=== PATIENT | female | born 1985 | race Caucasian/White ===

== ENCOUNTER 2020-05-14 13:58 | Emergency (ER) | payer SELFPAY ==
[2020-05-14 14:06] VITALS: BP 174/89; PULSE 85; RESP 18; TEMP 36.9; O2SAT 100
--- NOTE | 2020-05-14 14:16 | ED.GENADULT ---
HPI - General Adult General Chief complaint: Allergic Reaction Stated complaint: right eye swollen Time Seen by Provider: 05/14/20 14:17 Source: patient and RN notes reviewed Mode of arrival: ambulatory Limitations: no limitations History of Present Illness HPI narrative: This is a 35 years old female presented office for evaluation of right eye swollen just about an hour ago. She woke up this morning feeling fine, went to shopping and yard sale. She felt exhausted afterwards so she took an 10 to 15-minute nap and woke up with the symptoms. Symptoms began with slight itchiness which she scratched and rubbed and then it got worse with swollen and now having pain and pressures. Denies any other associated symptoms such as fever, cough, sore throat, or feeling ill. No treatment prior to arrival.Denies sick contact. She states that she has very sensitive skin and allergic to many things. Related Data Allergies Allergy/AdvReac Type Severity Reaction Status Date / Time guaifenesin Allergy Unknown Verified 08/27/19 11:46 morphine Allergy Unknown rash/itchin Verified 08/27/19 11:46 g hydromorphone AdvReac Unknown Vomiting Verified 08/27/19 11:46 Review of Systems Review of Systems: Narrative: CONSTITUTIONAL: Denies fever or feeling ill EYES: Denies visual changes; does not wear contact lenses. Reports right eyelids swollen and pressure ENT: Denies congestion, sore throat or ears pain CARDIOVASCULAR: Denies chest pain RESPIRATORY: Denies dyspnea, cough GASTROINTESTINAL: Denies abdominal pain, nausea, vomiting SKIN: Denies insect bite/lesions. MUSCULOSKELETAL: Denies joints pain NEUROLOGIC: Denies lightheaded/dizziness All other systems reviewed are negative, except as documented in HPI. PMFSH Comments At time of signature, I agree with nursing past medical, surgical, social and family history. There is no relevant family history pertinent to the presenting complaint. Exam Narrative: Exam Narrative: GENERAL: This is a well-nourished, well-developed patient, in no apparent distress. EYES: PERRL. Bilateral Sclera clear/white.Right eyelids appears edematous with slight erythema, warmth to palpation; I was able to prop her eye opens to check for reflex. EARS: External ears normal, auditory canals clear and without drainage, TMs normal without perforation. Hearing grossly intact. THROAT: Mucous membranes moist, posterior pharynx clear. NECK: Neck supple, non-tender without lymphadenopathy, masses or thyromegaly. CARDIOVASCULAR: Regular rate and rhythm without murmurs, gallops, or rubs. RESPIRATORY: Clear to auscultation. Breath sounds equal bilaterally. No wheezes, rales, or rhonchi. GASTROINTESTINAL: Abdomen soft, non-tender, nondistended. Bowel sounds are active. No hepato-splenomegaly, or palpable masses. No guarding. SKIN: warm, intact with no suspicious lesions or rash or bite beltran on her eye region. NEURO: awake, alert, and oriented to person, place and time. There were no obvious focal neurologic abnormalities. Steady gait [place] Coma Scale Eye Opening: Spontaneous 4 [place] Coma Scale Motor: Obeys Commands 6 [place] Coma Scale Verbal: Oriented 5 Course Vital Signs Vital signs: Vital Signs Temperature 98.4 F 05/14/20 14:06 Pulse Rate 85 05/14/20 14:06 Respiratory Rate 18 05/14/20 14:06 Blood Pressure 174/89 H 05/14/20 14:06 Pulse Oximetry 100 05/14/20 14:06 Temperature 98.4 F 05/14/20 14:06 Pulse Rate 85 05/14/20 14:06 Respiratory Rate 18 05/14/20 14:06 Blood Pressure 174/89 H 05/14/20 14:06 Pulse Oximetry 100 05/14/20 14:06 Medical Decision Making MDM Narrative Medical decision making narrative: Patient is Urgent/Emergent. BP elevated due to current condition w/o HTN in PMH (Measure Met). Discharge instructions reviewed with patient, as well as provided in writing per nursing staff. The instructions also include specific and strict return/GO TO THE ER as well as f/u inform
[2020-05-14] MEDS: methylPREDNISolone ACETATE 40 MG/ML VIAL IM (14:29)
== END 2020-05-14 14:45 | disposition home or self-care (01) ==
PROVIDERS: Emergency Provider Nurse Practitioner
DX: H57.89 Other specified disorders of eye and adnexa (principal); J45.909 Unspecified asthma, uncomplicated
CPT/HCPCS: 96372; 99213; G0463; J1030

== ENCOUNTER → 2020-12-29 09:19 | Emergency (ER) | payer OTHER, SELFPAY | END | disposition left against medical advice (07) | LOC: EXPBETH 09:54 | PROVIDERS: Emergency Provider Nurse Practitioner; PCP Family Medicine | DX: Z53.21 Procedure and treatment not carried out due to patient leaving prior to being seen by health care provider (principal) | CPT/HCPCS: 99199 ==

== ENCOUNTER 2021-02-07 15:18 | Emergency (ER) | payer OTHER, SELFPAY ==
[2021-02-07 15:25] VITALS: BP 154/76; PULSE 95; RESP 18; TEMP 36.7; O2SAT 99
--- NOTE | 2021-02-07 16:13 | ED.URI ---
HPI - URI/Sore Throat General Chief Complaint: Upper Respiratory Infection Stated Complaint: lost taste stuffy nose, nausea Time Seen by Provider: 02/07/21 15:47 Source: patient and RN notes reviewed Mode of arrival: ambulatory Limitations: no limitations History of Present Illness HPI Narrative: Patient presents today complaining of a 1 week history of cough, chills, subjective fever, nasal congestion, loss of taste or smell, worsening shortness of breath than normal. History of asthma. She is using her inhaler slightly more than normal. She has been using Vicks daytime and nighttime with some relief. She works at [employer] and has been continuing to go to work. MD elicited complaint: cough Related Data Home Medications Medication Instructions Recorded Confirmed albuterol sulfate 2 puff INHALATION QID PRN 02/07/21 02/07/21 Allergies Allergy/AdvReac Type Severity Reaction Status Date / Time guaifenesin Allergy Unknown Unknown Verified 02/07/21 15:51 morphine Allergy Unknown rash/itchin Verified 02/07/21 15:51 g hydromorphone AdvReac Unknown Vomiting Verified 02/07/21 15:51 Review of Systems Review of Systems: Narrative: CONSTITUTIONAL: Denies body aches, or sweats.+ Chills, subjective fever EYES: Denies visual changes, redness, or discharge. ENT: Denies rhinorrhea, sore throat, or otalgia.+ Congestion, loss of taste and smell CARDIOVASCULAR: Denies chest pain, palpitations, or edema. RESPIRATORY: + Cough, shortness of breath GASTROINTESTINAL: Denies abdominal pain, nausea, vomiting, or diarrhea. GENITOURINARY: Denies dysuria or hematuria. SKIN: Denies rash, itching, or wounds. MUSCULOSKELETAL: Denies back pain, joint pain, or myalgia. NEUROLOGIC: Denies headache, numbness, tingling, or weakness. PSYCH: Denies depression or anxiety. [facility] Past Medical History Medical History (Updated 02/08/21 @ 08:22 by Hawa Ramos, [employer], ) Asthma Bipolar disorder GERD (gastroesophageal reflux disease) Hypertension Major depressive disorder Comments At time of signature, I have reviewed and agree with nursing past medical, surgical, social and family history unless otherwise noted. Please see nursing chart for further information. There is no relevant family history pertinent to the presenting complaint Exam Narrative: Exam Narrative: GENERAL: Mildly ill-appearing, well-nourished, and in no acute distress. HEAD: Normocephalic, atraumatic. EYES: EOMI. No redness or drainage. Conjunctivae normal. ENT: Mucous membranes pink and moist. Nares congested. No rhinorrhea. TMs normal bilaterally. Throat normal. Uvula midline. NECK: Normal AROM. Supple. No lymphadenopathy. CHEST: No respiratory distress. Clear to auscultation. HEART: Regular rate and rhythm. No murmur appreciated. Normal peripheral pulses. EXTREMITIES: Normal range of motion. No edema. SKIN: Warm, dry, no rash. Capillary refill normal. Normal skin turgor. NEURO: No focal deficits. Alert and oriented x3. Gait steady. PSYCH: Normal affect. No signs of depression or anxiety. Course Vital Signs Vital signs: Vital Signs Temperature 98.1 F 02/07/21 15:25 Pulse Rate 95 02/07/21 15:25 Respiratory Rate 18 02/07/21 15:25 Blood Pressure 154/76 H 02/07/21 15:25 Pulse Oximetry 99 02/07/21 15:25 Temperature 98.1 F 02/07/21 15:25 Pulse Rate 95 02/07/21 15:25 Respiratory Rate 18 02/07/21 15:25 Blood Pressure 154/76 H 02/07/21 15:25 Pulse Oximetry 99 02/07/21 15:25 Reviewed. Pt has been instructed to follow up with her PCP regarding her elevated blood pressure today. MDM - URI/Sore Throat Differential Diagnosis Differential diagnosis: Likely upper respiratory infection, sinusitis, viral infection, bronchitis, influenza and other (COVID-19, pneumonia, asthma exacerbation) Lab Data Attestation: I reviewed the patient's lab results. Lab results narrative: Patient's rapid POC Covid test is positive. This is not curren
--- NOTE | 2021-02-08 10:35 | PC.NURSE ---
Previously determined covid poc result inadvertently charted negative 02/07. Staff spoke with Marilynn in lab. She was made aware test result was positive and she will make change in chart. Additionally spoke with Aram Armstrong (with [facility] POC testing reporting portal) who made change from negative result to positive.
== END 2021-02-07 16:15 | disposition home or self-care (01) ==
PROVIDERS: Emergency Provider Nurse Practitioner
DX: U07.1 COVID-19 (principal); J45.909 Unspecified asthma, uncomplicated; K21.9 Gastro-esophageal reflux disease without esophagitis; I10 Essential (primary) hypertension
CPT/HCPCS: 87426; 99213; C9803; G0463

== ENCOUNTER 2021-07-22 16:48 | Emergency (ER) | payer OTHER, SELFPAY ==
[2021-07-22 17:00] VITALS: BP 169/86; PULSE 84; RESP 16; TEMP 37.3; O2SAT 100
--- NOTE | 2021-07-22 17:01 | ED.DENTAL ---
HPI - Dental/Oral General Chief complaint: Dental/Oral Stated complaint: infected gum Time Seen by Provider: 07/22/21 17:08 Source: patient and RN notes reviewed Mode of arrival: ambulatory Limitations: no limitations History of Present Illness HPI Narrative: 36-year-old female presents with concern for dental pain. She reports that she broke tooth #12 sometime ago, had not caused her any problems. Reports over the last several days she has had pain, swelling to that area. Reports occasional foul taste coming from the area. She denies fever, body aches. Denies swollen lips, tongue, trouble swallowing. Reports she is going to see a dentist this week. MD Complaint: tooth pain ([place]) Related Data Home Medications Medication Instructions Recorded Confirmed acetaminophen [Acetaminophen Extra 1,000 mg PO BID 07/22/21 07/22/21 Strength] citalopram 10 mg PO DAILY 07/22/21 07/22/21 etonogestrel [Nexplanon] 1 implant SUBDERMAL ONCE 07/22/21 07/22/21 Allergies Allergy/AdvReac Type Severity Reaction Status Date / Time guaifenesin Allergy Unknown Rash Verified 07/22/21 17:11 morphine Allergy Unknown rash/itchin Verified 02/07/21 15:51 g hydromorphone AdvReac Unknown Vomiting Verified 02/07/21 15:51 Review of Systems Review of Systems: CONSTITUTIONAL: Denies malaise, chills, sweats, or fever. ENT: Denies rhinorrhea, congestion, sinus pain, otalgia or sore throat. Reports left upper dental pain CARDIOVASCULAR: Denies chest pain, palpitations, or edema. RESPIRATORY: Denies dyspnea. All systems reviewed & are unremarkable except as noted in HPI and below PMFSH Past Medical History Medical History (Updated 07/22/21 @ 17:17 by Dionne Sheldon NP) Asthma Bipolar disorder GERD (gastroesophageal reflux disease) Hypertension Major depressive disorder Comments At time of signature, agree with nursing past medical, surgical, social and family history. There is no relevant family history pertinent to the presenting complaint Exam Narrative: GENERAL: Well-appearing, well-nourished, and in no acute distress. HEAD: Normocephalic, atraumatic. EYES: PERRLA, conjunctivae clear ENT: Nares clear. Mucous membranes moist. Oropharynx without erythema or lesions. Tonsils not enlarged and without exudate. Tooth #12 broken, erythematous gum, tender NECK: Supple. CHEST: No respiratory distress. Speaks in full sentences. HEART: Regular rate and rhythm. SKIN: Warm, dry, no rash. NEURO: Alert and oriented x3. PSYCH: Normal mood and affect Course Course Emergency Course: Patient is aware of diagnosis, understands and agrees to treatment plan. Anticipatory guidance given. Patient agrees to follow-up as directed and is aware of reasons to seek care at the emergency department. Portions of this record may have been created with voice recognition software Vital Signs Vital signs: Reviewed. MDM - Dental/Oral MDM Narrative Medical decision making narrative: Patients pain and complaint coupled with physical findings are consistant with dentalgia. There are no focal signs of space occupying lesions that are compromising to the airway; no dysphagia, odynophagia, dysphonia, or dyspnea. No uvular deviation or soft palate edema. Patient is non-toxic appearing. The floor of the mouth is soft with no signs of Dilan's Angina; no induration below mandible, no neck pain. Patient is without trismus or drooling and able to swallow secretions. Patient is felt appropriate for discharge home with dental follow up. Critical Care Time Critical Care Time Critical Care Time: No Discharge Plan Discharge Clinical Impression: Dental abscess Patient Disposition: Home, Self-Care Condition: Stable Instructions: Antibiotic Form, Dental Abscess (ED) Additional Instructions: Take antibiotic as directed Avoid temperature extremes May apply heat or ice to the face Gentle brushing and flossing Alternate Tylenol and ibuprofen as ne
== END 2021-07-22 17:22 | disposition home or self-care (01) ==
PROVIDERS: Emergency Provider Nurse Practitioner
DX: K04.7 Periapical abscess without sinus (principal); J45.909 Unspecified asthma, uncomplicated; K21.9 Gastro-esophageal reflux disease without esophagitis; I10 Essential (primary) hypertension; F32.9 Major depressive disorder, single episode, unspecified
CPT/HCPCS: 99213; G0463

== ENCOUNTER 2021-10-11 13:02 | Emergency (ER) | payer OTHER, SELFPAY ==
[2021-10-11 13:07] VITALS: BP 177/102; PULSE 76; RESP 20; TEMP 36.9; O2SAT 99
--- NOTE | 2021-10-11 13:36 | ED.DENTAL ---
HPI - Dental/Oral General Chief complaint: Dental/Oral Stated complaint: tooth pain Time Seen by Provider: 10/11/21 13:36 Source: patient and RN notes reviewed Mode of arrival: ambulatory Limitations: no limitations History of Present Illness HPI Narrative: 36-year-old female presents concern for upper and lower left dental pain. Reports history of problems with her teeth. Reports she has been taking ibuprofen daily with no relief. She denies trouble swallowing, fever, body aches, chills. In a separate complaint she reports itchy rash with scabs on her lower arms, lower legs, hands, feet, abdomen. Reports her son has a similar rash. MD Complaint: tooth pain Related Data Home Medications Medication Instructions Recorded Confirmed citalopram 10 mg PO DAILY 07/22/21 10/11/21 Allergies Allergy/AdvReac Type Severity Reaction Status Date / Time guaifenesin Allergy Unknown Rash Verified 10/11/21 13:12 morphine Allergy Unknown rash/itchin Verified 10/11/21 13:12 g hydromorphone AdvReac Unknown Vomiting Verified 10/11/21 13:12 Review of Systems Review of Systems: CONSTITUTIONAL: Denies malaise, chills, sweats, or fever. EYES: Denies visual changes, redness, or discharge. ENT: Denies rhinorrhea, congestion, sinus pain, otalgia or sore throat. CARDIOVASCULAR: Denies chest pain, palpitations, or edema. RESPIRATORY: Denies cough or dyspnea. GASTROINTESTINAL: Denies abdominal pain, nausea, vomiting, diarrhea, bloody, or mucous stools. GENITOURINARY: Denies dysuria or hematuria. SKIN: Denies rash or itching. MUSCULOSKELETAL: Denies back pain, joint pain, or myalgia. NEUROLOGIC: Denies numbness, weakness, or headache. PSYCHIATRIC: Denies anxiety or depression. All systems reviewed & are unremarkable except as noted in HPI and below PMFSH Past Medical History Medical History (Updated 10/11/21 @ 13:46 by Dionne Sheldon NP) Asthma Bipolar disorder GERD (gastroesophageal reflux disease) Hypertension Major depressive disorder Comments At time of signature, agree with nursing past medical, surgical, social and family history. There is no relevant family history pertinent to the presenting complaint Exam Narrative: GENERAL: Well-appearing, well-nourished, and in no acute distress. HEAD: Normocephalic, atraumatic. EYES: PERRLA, conjunctivae clear, and EOMI. ENT: Mucous membranes moist. Oropharynx without edema, erythema or lesions. Broken teeth, missing teeth, caries, noted on left upper and lower side. NECK: Supple. No lymphadenopathy CHEST: Clear to auscultation. No respiratory distress. HEART: Regular rate and rhythm. SKIN: Warm, dry. Scabs, erythematous papules noted to lower arms, lower legs, abdomen with tracking consistent with scabies infection NEURO: Alert and oriented x3. PSYCH: Normal mood and affect Course Course Emergency Course: Patient is aware of diagnosis, understands and agrees to treatment plan. Anticipatory guidance given. Patient agrees to follow-up as directed and is aware of reasons to seek care at the emergency department. Portions of this record may have been created with voice recognition software Vital Signs Vital signs: Vital Signs Temperature 98.4 F 10/11/21 13:07 Pulse Rate 76 10/11/21 13:07 Respiratory Rate 20 10/11/21 13:07 Blood Pressure 177/102 H 10/11/21 13:07 Pulse Oximetry 99 10/11/21 13:07 Temperature 98.4 F 10/11/21 13:07 Pulse Rate 76 10/11/21 13:07 Respiratory Rate 20 10/11/21 13:07 Blood Pressure 177/102 H 10/11/21 13:07 Pulse Oximetry 99 10/11/21 13:07 Reviewed. Patient has been instructed to follow up with her primary care provider within the next week regarding her elevated blood pressure today. MDM - Dental/Oral MDM Narrative Medical decision making narrative: Patients pain and complaint coupled with physical findings are consistant with dentalgia. There are no focal signs of space occupying lesions that are compromising to the air
[2021-10-11 13:55] VITALS: BP 168/98
== END 2021-10-11 13:55 | disposition home or self-care (01) ==
PROVIDERS: Emergency Provider Nurse Practitioner; PCP Nurse Practitioner Family
DX: K08.89 Other specified disorders of teeth and supporting structures (principal); B86 Scabies; J45.909 Unspecified asthma, uncomplicated; K21.9 Gastro-esophageal reflux disease without esophagitis; I10 Essential (primary) hypertension; F32.9 Major depressive disorder, single episode, unspecified
CPT/HCPCS: 99213; G0463

== ENCOUNTER 2022-10-29 11:27 | Emergency (ER) | payer OTHER, SELFPAY ==
--- NOTE | 2022-10-29 11:53 | ED.ASTHMA ---
HPI - Asthma General Chief Complaint: Asthma Stated Complaint: asthma/hard time breathing History of Present Illness HPI Narrative: Patient here for a refill on her Spiriva. Patient states she was started on Spiriva through the emergency room 1 month ago and feels much better while she is on it. Patient called her primary care provider and was not able to get a refill until she was evaluated by her PCP. No respiratory distress. Related Data Home Medications Medication Instructions Recorded Confirmed Spiriva Respimat 1 puff BID 10/29/22 10/29/22 albuterol sulfate 90 mcg/actuation 2 puff inhalation QID PRN wheezing 10/29/22 10/29/22 aerosol inhaler Allergies Allergy/AdvReac Type Severity Reaction Status Date / Time guaifenesin Allergy Unknown Rash Verified 10/29/22 11:47 morphine Allergy Unknown rash/itchin Verified 10/29/22 11:47 g hydromorphone AdvReac Unknown Vomiting Verified 10/29/22 11:47 Review of Systems Review of Systems: CONSTITUTIONAL: Denies fever, chills, or sweats. EYES: Denies visual changes, redness, or discharge. ENT: Denies rhinorrhea, congestion, sore throat, or otalgia. CARDIOVASCULAR: Denies chest pain, palpitations, or edema. RESPIRATORY: Denies cough or dyspnea. GASTROINTESTINAL: Denies abdominal pain, nausea, vomiting, or diarrhea. GENITOURINARY: Denies dysuria or hematuria. SKIN: Denies rash or itching. MUSCULOSKELETAL: Denies back pain, joint pain, or myalgia. NEUROLOGIC: Denies headache, numbness, or weakness. PSYCHIATRIC: Denies anxiety or depression. [facility] Past Medical History Medical History (Updated 10/29/22 @ 11:56 by ADDI Moise) Asthma Bipolar disorder GERD (gastroesophageal reflux disease) Hypertension Major depressive disorder Comments At time of signature, agree with nursing past medical, surgical, social and family history. There is no relevant family history pertinent to the presenting complaint Exam Narrative: GENERAL: Well-appearing, well-nourished, and in no acute distress. HEAD: Normocephalic, atraumatic. EYES: PERRLA and EOMI. ENT: Nares clear, no rhinorrhea or epistaxis. Mucous membranes moist. NECK: Supple. CHEST: Clear to auscultation. No respiratory distress. HEART: Regular rate and rhythm. No murmur heard. Normal peripheral pulses. ABDOMEN: Soft, nontender, nondistended, normal active bowel sounds. EXTREMITIES: Normal range of motion. No edema. SKIN: Warm, dry, no rash. NEURO: No focal deficits. Alert and oriented x3. [place] Coma Scale Eye Opening: Spontaneous 4 [place] Coma Scale Motor: Obeys Commands 6 [place] Coma Scale Verbal: Oriented 5 [place] Coma Scale Total 15 Course Course Level of Care: Express Care Visit MDM - Asthma Differential Diagnosis Differential diagnosis: Likely Acute exacerbation, Status asthmaticus, Acute asthmatic bronchitis, PE, Pneumonia and COPD exacerbation Discharge Plan Discharge Clinical Impression: Medication refill Patient Disposition: Home, Self-Care Condition: Stable Instructions: Asthma (DC), Medicine Refill (ED) Additional Instructions: Use inhalers as prescribed Follow-up with primary care provider in 5-7 days for re-evaluation Discussed red flags and when to go to ER Prescriptions: New Spiriva Respimat 1.25 mcg/actuation mist 2 puff inhalation DAILY 30 Days Qty: 4 0RF albuterol sulfate 90 mcg/actuation HFA aerosol inhaler 2 puff inhalation QID PRN (Reason: shortness of breath or wheezing) 30 Days Qty: 8.5 0RF No Action albuterol sulfate 90 mcg/actuation HFA aerosol inhaler 2 puff INHALATION QID PRN (Reason: wheezing) Spiriva Respimat 1 puff BID Follow-up/Referrals: Nandini,Ruth Herrera, CERE[employer]MIST-[facility]ARMAN [Primary Care Provider] -
[2022-10-29 12:03] VITALS: BP 153/91; PULSE 86; RESP 18; TEMP 36; O2SAT 99
== END 2022-10-29 12:05 | disposition home or self-care (01) ==
PROVIDERS: Emergency Provider Nurse Practitioner Family; PCP Nurse Practitioner Family
DX: J45.909 Unspecified asthma, uncomplicated (principal); Z76.0 Encounter for issue of repeat prescription; K21.9 Gastro-esophageal reflux disease without esophagitis; I10 Essential (primary) hypertension
CPT/HCPCS: 99211; G0463

== ENCOUNTER 2023-03-25 19:10 | Emergency (ER) | payer OTHER, SELFPAY ==
--- NOTE | 2023-03-25 19:14 | ED.SKABFB ---
HPI - Skin/Abscess/Foreign Bdy General Chief complaint: Skin/Abscess/Foreign Body Stated complaint: Skin Sore/Finger Time Seen by Provider: 03/25/23 19:15 Source: patient and RN notes reviewed History of Present Illness HPI narrative: Patient is a 37 female presents to urgent care with complaints of a sore to the left ring finger. Patient states that she noticed 2 days ago. Patient is put cold compress on up otherwise has not taken anything [id number] for pain. Patient does admit to biting her nails. No other acute complaints. No acute distress noted. Patient aware of the of care. Some parts of this dictation were generated by voice recognition software and may contain typographical and/or grammatical inaccuracies. Related Data Home Medications Medication Instructions Recorded Confirmed albuterol sulfate 90 mcg/actuation 2 puff inhalation QID PRN wheezing 10/29/22 03/25/23 aerosol inhaler Allergies Allergy/AdvReac Type Severity Reaction Status Date / Time guaifenesin Allergy Unknown Rash Verified 03/25/23 19:23 morphine Allergy Unknown rash/itchin Verified 03/25/23 19:23 g hydromorphone AdvReac Unknown Vomiting Verified 03/25/23 19:23 Review of Systems Review of Systems: CONSTITUTIONAL: Denies fever, chills, or sweats. EYES: Denies visual changes, redness, or discharge. ENT: Denies rhinorrhea, congestion, sore throat, or otalgia. CARDIOVASCULAR: Denies chest pain, palpitations, or edema. RESPIRATORY: Denies cough or dyspnea. GASTROINTESTINAL: Denies abdominal pain, nausea, vomiting, or diarrhea. GENITOURINARY: Denies dysuria or hematuria. SKIN: Reports of a sore to the left ring finger. MUSCULOSKELETAL: Denies back pain, joint pain, or myalgia. NEUROLOGIC: Denies headache, numbness, or weakness. All other systems reviewed are negative, except as documented in HPI. [facility] Past Medical History Medical History (Updated 03/25/23 @ 19:42 by ADDI Parmar) Asthma Bipolar disorder GERD (gastroesophageal reflux disease) Hypertension Major depressive disorder Comments At the time of my signature, I reviewed and agree with the nursing past medical, surgical, social, and family history. There is no relevant family history pertinent to the patient complaint. Exam Narrative: GENERAL: This is a well-nourished, well-developed patient, in no apparent distress. HEAD: normocephalic, atraumatic. EYES: PERRL. Sclera clear/white. Vision is grossly intact. EARS: External ears normal NOSE: External nose normal with no obvious nasal discharge, nares without redness, no rhinorrhea. THROAT: Mucous membranes moist SKIN: Mild paronychia to the aspect of the left ring finger with tenderness with mild surrounding erythema. Warm, intact with no suspicious lesions or rash, good texture and turgor. NEURO: awake, alert, and oriented to person, place and time. There were no obvious focal neurologic abnormalities. EXTREMITIES: No clubbing, cyanosis, or edema. Course Course Level of Care: Express Care Visit Vital Signs Vital signs: Vital Signs Temperature 99.0 F 03/25/23 19:18 Pulse Rate 86 03/25/23 19:18 Respiratory Rate 20 03/25/23 19:18 Blood Pressure 151/85 H 03/25/23 19:18 Pulse Oximetry 100 03/25/23 19:18 Oxygen Delivery Room Air 03/25/23 19:18 Temperature 99.0 F 03/25/23 19:24 Pulse Rate 86 03/25/23 19:24 Respiratory Rate 20 03/25/23 19:24 Blood Pressure 151/85 H 03/25/23 19:24 Pulse Oximetry 100 03/25/23 19:24 Oxygen Delivery Room Air 03/25/23 19:24 Reviewed- Patient is informed that they may have pre-hypertension or hypertension based on a blood pressure reading in the department. I recommend the patient call the primary care provider listed on their discharge instructions or a physician of their choice this week to arrange follow-up for further evaluation of possible pre-hypertension or hypertension. MDM - Skin/Abscess/Foreign Bdy MDM [place]
[2023-03-25 19:18] VITALS: BP 151/85; PULSE 86; RESP 20; TEMP 37.2; O2SAT 100
[2023-03-25 19:24] VITALS: BP 151/85; PULSE 86; RESP 20; TEMP 37.2; O2SAT 100
== END 2023-03-25 19:45 | disposition home or self-care (01) ==
PROVIDERS: Emergency Provider Nurse Practitioner Family; PCP Nurse Practitioner Family
DX: L03.012 Cellulitis of left finger (principal); J45.909 Unspecified asthma, uncomplicated; K21.9 Gastro-esophageal reflux disease without esophagitis; I10 Essential (primary) hypertension
CPT/HCPCS: 99213; G0463

== ENCOUNTER 2024-04-05 17:09 | Emergency (ER) | payer OTHER, SELFPAY ==
[2024-04-05 17:16] VITALS: BP 144/85; PULSE 99; RESP 20; TEMP 37.4; O2SAT 100
--- NOTE | 2024-04-05 17:56 | ED.GENADULT ---
HPI - General Adult General Chief complaint: Urogenital-Female Stated complaint: poss UTI/cramping Time Seen by Provider: 04/05/24 17:34 Source: patient, RN notes reviewed and old records reviewed Mode of arrival: ambulatory Limitations: no limitations History of Present Illness HPI narrative: 39-year-old female to [facility] for complaint bladder fullness, lower abdominal discomfort for 1 week and painful intercourse last night. Patient denies fever, nausea, vomiting, pertinent history. Patient denies concern for STI, fever, nausea, vomiting. Patient able to tolerate fluids by mouth. Patient in no acute distress. Related Data Home Medications Medication Instructions Recorded Confirmed albuterol sulfate 90 mcg/actuation 2 puff inhalation QID PRN wheezing 10/29/22 04/05/24 aerosol inhaler budesonide-formoterol HFA 160 2 puff inhalation BID 04/05/24 04/05/24 mcg-4.5 mcg/actuation aerosol inhaler (Symbicort) quetiapine 50 mg tablet 50 mg PO DAILY 04/05/24 04/05/24 Allergies Allergy/AdvReac Type Severity Reaction Status Date / Time guaifenesin Allergy Unknown Rash Verified 04/05/24 17:36 morphine Allergy Unknown rash/itchin Verified 04/05/24 17:36 g hydromorphone AdvReac Unknown Vomiting Verified 04/05/24 17:36 Review of Systems Review of Systems: All systems reviewed & are unremarkable except as noted in HPI and below Constitutional: Constitutional: Reports as per HPI, Denies fever(s) and Denies poor appetite Eyes: Eyes: Reports no additional eye complaints ENT: Reports system reviewed and no additional complaints, except as documented Cardiovascular: Cardiovascular: Reports no additional cardiovascular complaints, Denies chest pain and Denies dyspnea Respiratory: Respiratory: Reports no additional respiratory complaints, Denies cough and Denies dyspnea Gastrointestinal: Gastrointestinal: Reports abdominal pain ( Lower abd pain), Denies diarrhea, Denies nausea and Denies vomiting Genitourinary: Genitourinary: Reports as per HPI, Reports dyspareunia, Reports dysuria and Reports urinary urgency Musculoskeletal: Musculoskeletal: Reports no additional musculoskeletal complaints Neurologic: Reports system reviewed and no additional complaints, except as documented Psychiatric: Psychiatric: Reports no additional psychiatric complaints PMFSH Past Medical History Medical History Asthma Bipolar disorder GERD (gastroesophageal reflux disease) Hypertension Major depressive disorder Comments At the time of my signature, I reviewed and agree with the nursing past medical, surgical, social, and family history. There is no relevant family history pertinent to the patient complaint. Exam Const: General: cooperative, healthy appearing, comfortable, no acute distress, alert and well nourished Nutritional Appearance: well nourished Orientation/consciousness: patient oriented x3 Limitations: no limitations HENMT: Head: normal to inspection Ears: external ears normal Face/Nose/Sinus: Normal external nose present, Normal nares present, normal facial exam, No erythema and No edema Face and sinus: normal facial exam, no erythema and no edema Mouth: Yes Normal oral and palatal mucosa present Eyes: General: appearance normal, both eyes and all related structures Neck: Neck: normal visual inspection, full ROM and no meningeal signs Lymphatic: no lymphadenopathy noted and no lymphedema noted Chest: Chest palpation & inspection: normal inspection of the chest Resp: Effort & Inspection: normal respiratory effort and able to speak in complete sentences Auscultation: clear to auscultation bilaterally Cardio: Jugular venous distension: no JVD Rate: regular rate Rhythm: regular rhythm GI: Inspection: normal to inspection GI Palp: No abdominal tenderness, Yes Soft to palpation, No Tenderness to palpation present (GI), No Guarding due to pal
== END 2024-04-05 18:25 | disposition home or self-care (01) ==
PROVIDERS: Emergency Provider Nurse Practitioner Family
DX: N39.0 Urinary tract infection, site not specified (principal); J45.909 Unspecified asthma, uncomplicated; K21.9 Gastro-esophageal reflux disease without esophagitis; I10 Essential (primary) hypertension; F31.9 Bipolar disorder, unspecified
CPT/HCPCS: 81003; 87086; 87088; 99213; G0463

== ENCOUNTER 2024-07-01 11:21 | Outpatient (CLI) | payer OTHER, SELFPAY ==
[2024-07-01 19:38] LABS: Hemoglobin 12.7 g/dL (12.0-15.0); Mean Corpuscular Hemoglobin 27.4 pg (26-34); Mean Corpuscular Volume 88.4 fl (80-100); Mean Platelet Volume 10.7 fl (7.4-10.4); Platelet Count Result 305 k/mm3 (150-375); Red Blood Count 4.64 M/mm3 (4.2-5.4); Red Cell Distribution Width 13.2 % (11.5-14.5)
[2024-07-01 19:49] LABS: Alanine Aminotransferase 21 U/L (6-35); Albumin Level 4.3 g/dL (3.5-5.1); Alkaline Phosphatase 77 U/L (38-126); Anion Gap 9 mmol/L (4-12); Aspartate Amino Transferase 51 U/L (14-36); Bilirubin,Total 0.6 mg/dL (0.2-1.3); Blood Urea Nitrogen 9 mg/dL (7-17); Calcium 9.1 mg/dL (8.4-10.2); Carbon Dioxide 27 mmol/L (22-30); Chloride 102 mmol/L (98-107); Cholesterol 168 mg/dL (0-200); Estimated Glomerular Filt Rate > 60; Glucose 90 mg/dL (65-110); HDL Direct 47 mg/dL; Sodium 138 mmol/L (137-145); Triglycerides 67 mg/dL (<150)
[2024-07-01 20:06] LABS: LDL Cholesterol Direct 102 mg/dL
[2024-07-01 20:10] LABS: Hemoglobin A1C 5.4 % (<5.7)
== END 2024-07-01 11:22 | disposition home or self-care (01) ==
LOC: ANHBWCLAB 11:22
PROVIDERS: PCP Nurse Practitioner Adult Health; Visit Provider Nurse Practitioner Adult Health
DX: Z13.9 Encounter for screening, unspecified (principal)
CPT/HCPCS: 36415; 80053; 80061; 83036; 84443; 85027

== ENCOUNTER 2025-03-02 09:54 | Outpatient (CLI) | payer OTHER, SELFPAY ==
--- OUTSIDE RECORDS SUMMARY | 2025-03-02 10:54 | XMS_ITS | Clinical Summary ---
Author Organization [facility] Address [address] [place] [address] Care Team Providers Care City Planning Aide Name Role Phone Nehemiah Marisela KATERINE Primary Care Provider [phone] Allergies Active Allergy Reactions Criticality Noted Date Comments Codeine Dextromethorphan-Guaifenesin Duloxetine Oxycodone Medications ibuprofen (ADVIL,MOTRIN) 800 mg tablet Take 1 tablet (800 mg total) by mouth 3 (three) times a day 21 tablet 0 Active citalopram (CeleXA) 10 mg tablet Take 10 mg by mouth daily 1 Active albuterol HFA (PROVENTIL HFA,VENTOLIN HFA,PROAIR HFA) 90 mcg/actuation inhaler Inhale 2 puffs every 6 (six) hours as needed for wheezing or shortness of breath 1 each 2 Active budesonide-for moteroL (SYMBICORT) 80-4.5 mcg/actuation inhaler Inhale 2 puffs 2 (two) times a day Rinse mouth with water after use. Do not swallow. 1 each 2 Active predniSONE (DELTASONE) 10 mg tablet Take 1 tablet (10 mg) by mouth as directed 3 p.o. daily for 5 days then 2 p.o. daily for 5 days then 1 p.o. daily for 5 days. Collaborating physician Dino Granger MD 30 tablet 3 Active triamcinolone (KENALOG) 0.1 % cream Apply topically 2 (two) times a day Apply to rash as directed. Collaborating physician Dino Granger MD 80 g 2 3 Active hydrOXYzine (ATARAX) 25 mg tablet Take 1 tablet (25 mg total) by mouth every 6 (six) hours Take as directed for itch and rash. Collaborating physician Dino Granger MD 30 tablet 1 3 Active Active Problems Problem Noted Date Diagnosed Date Urticaria 02/27/2023 Pruritic dermatitis 02/27/2023 03/30/2022 Right tubal without intrauterine pregn anselmo 03/29/2022 Overview (03/30/2022): Added automatically from request for surgery [id number] Asthma 04/10/2014 Overview (02/28/2017): ASTHMA NOS Hypertension 04/10/2014 Overview (03/01/2017): HYPERTENSION NOS Irritable bowel syndrome 04/10/2014 Overview (03/01/2017): IRRITABLE BOWEL SYNDROME HELLP syndrome (HELLP), third trimester 37 weeks gestation of Immunizations Immunization Administration Dates Next Due Influenza, Split 09/10/2013,09/05/2012, 0 Surgical History Surgery Date Site/Laterality Comments OTHER SURGICAL HISTORY Appendicitis: Appendectomy OTHER SURGICAL HISTORY Back pain: chronic back pain - [facility] eval as child APPENDECTOMY 11/25/1992 - 11/24/1993 Appendectomy OTHER SURGICAL HISTORY 11/25/2010 - 11/24/2011 Left left foot surgery Medical History Medical History Date Comments Cyst of ovary Ovarian cyst Hx Other Medical 1992 Appendicitis Hx Other Medical 1994 Back pain Asthma Asthma Hypertension Hypertension Depression Depression bipol ar and anxiety Family History Medical History Relation Name Comments Allergies Maternal Grandfather 2 Aller gies; Hypertension Mother 2 Hypertension; Relation Name Status Comments Maternal Grandfather 1 Alive Maternal Grandfather 2 Mother 1 Alive Mother 2 Social History Tobacco Use Types Packs/Day Years Used Date Smoking Tobacco: Some Days Cigarettes Smokeless Tobacco: Never Tobacco Cessation:Ready to Q uit: Not Asked; Counseling Given: Not Answered Alcohol Use Standard Drinks/Week Comments No 0 (1 standard drink = 0.6 oz pur e alcohol) AUDIT-C Answer Date Recorded Q1: How often do you have a drink containing alc ohol? Never 03/30/2022 Average Number of Drinks Not on file 022 Frequency of Binge Drinking Not on file 04/2022 Personal Safety Answer Date Recorded Have you ever been in or are you currently in a harmful physical or emotional relationship or is someone making you feel afraid or unsafe? 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 Gender Identity Not on file Sexual Orientation Not on file Occupation Industry Job Start Date Job End Date [employer] Not on file Not on file Not on file Obstetrics History Para Term AB IAB SAB Ectopic Multiple Livin g Live Births 1 1 1 0 0 0 0 0 0 1 1 Date Outcome GA Total Labor Labor/2nd/3rd Weight Sex Type Anes PTL Mia A1 A5 Name Clin Term 37w 0d 2.41 kg (5 lb 5 oz) M Vag-S pont Living Complications:Pre eclampsia Last Filed Vital Signs Vital Sign Reading Time Taken Comments Blood Pressure 152/86 04/24/2023 1:15 PM CDT Pulse 66 04/24/2023 1:15 PM CDT Temperature 37.1 C (98.8 F) 04/24/2023 9:59 AM CDT Respiratory Rate 23 04/24/2023 1:15 PM CDT Oxygen Saturation 97% 04/24/2023 1:15 PM CDT Inhaled Oxygen Concentration - - Weight 92.1 kg (203 lb) 04/24/2023 9:59 AM CDT Height 175.3 cm (5' 9 ) 04/24/2023 9:59 AM CDT Body Mass Index 29.98 04/24/2023 9:59 AM CDT Plan of Treatment Health Maintenance Due Date Last Done Comments Depression Screening 1985 Hepatitis C Screening 1985 Varicella Vaccines (1 of 2 - 13+ 2-dose series) 1998 Hepatitis B Screening 2003 Pneumococcal vaccine <65 (1 of 2 - PCV) 2004 Cervical Cancer Screening 08/21/2022 08/21/2021 Regular Well Visit/Exam 18-64 08/21/2022 08/21/2021 Influenza Vaccine (#1) 2024 9, 09/10/2016, 08/25/2015, Additional history exists DTaP/Tdap/Td Vaccine (3 - Td or Tdap) 12/21/2028 12/21/2018, 03/25/2016 HPV Vaccines Aged Out No longer eligi ble based on patient's age to complete this topic Procedures Procedure Name Priority Date/Time Associated Diagnosis Comments PAP WITH REFLEX TO HIGH RISK HPV Routine 08/21/2021 9:51 AM CDT from Last 3 Months or Most Recently Relevant to Health Maintenance Results * Pap with reflex to High Risk HPV (08/21/2021 9:51 AM CDT) Pap test 08/21/2021 9:51 AM CDT 08/21/2021 9:51 AM CDT Narrative 08/24/2021 10:50 AM CDT [facility] Department of [facility]ology [address] [place], [place] [id number] Final Report with Addendum Note to Patients: This report may contain a detailed description of human tissue sent by a health care provider to the laboratory for pathologic evaluation. The content of this report is essential for diagnosis and may provide important critical findings. This information may be unfamiliar to patients to review without a medical professional present. It is advised that the patient review this report in the presence of a health care provider who can answer questions and explain the details. Patient Name: LILIA GARCIA Address: [address] [place] [address] Gender: F : 1985 (Age: 36) Service: Laboratory Location: Lab [facility] #: [id number] Patient Type: Ref Lab Taken: 08/21/2021 Received: 08/21/2021 Accessioned:: 08/22/2021 Reported: 08/24/2021 Physician(s): Wade Bryant D.O. Diagnosis: Source of Specimen: Imaged Thinprep Pap Test plus HPV - Roller Varnisher Cytologic Material Specimen Adequacy: - Satisfactory for evaluation; endocervical/transformation zone component present General Category: - Negative for intraepithelial lesion or malignancy LEMUEL Pierson(ASCP) Report Electronically Reviewed and Signed Out By JANA PiersonASCP) 08/24/2021 10:50:50 Addenda: HPV Test Interpretation NEGATIVE for types 16, 18, 31, 33, 35, 39, 45, 51, 52, 56, 58, 59, 66 and 68. Test performed utilizing Gen-Probe Aptima assay. LEMUEL Durant(ASCP) Report Electronically Reviewed and Signed Out By LEMUEL Durant(ASCP) 08/23/2021 12:55:23 Specimen(s) Received: A: Imaged Thinprep Pap Test plus HPV - Roller Varnisher Cytologic Material Clinical History: Last Menstrual Period: 08/19/21 Contraceptive History: control implant: Nexplanon The Pap test is a screening test used to aid in the detection of cervical cancer and its precursors. It should not be the sole means by which malignant and premalignant lesions are diagnosed. Both false negative and false positive results may occur. It also has poor sensitivity for the detection of endometrial lesions and should not be used to evaluate suspected endometrial abnormalities. For these reasons it is most important to obtain Pap tests at regular intervals. The performance characteristics of some immunohistochemical stains, fluorescence in-situ hybridization tests and immunophenotyping by flow cytometry cited in this report (if any) were determined by the Surgical Pathology Department at as part of an ongoing quality cloth tester program and in compliance with federally mandated regulations drawn from the Clinical Laboratory Improvement Act of 1988 (CLIA '88). Some of these tests rely on the use of analyte specific reagents and are subject to specific labeling requirements by the US Food and Drug Administration. Such diagnostic tests may only be performed in a facility that is certified by the Department of Health and Human Services as a high complexity laboratory under CLIA '88. The FDA has determined that such clearance or approval is not necessary. This test is used for clinical purposes. It should not be regarded as investigational or for research. Nevertheless, federal rules concerning the medical use of analyte specific reagents require that the following disclaimer be attached to the report: This test was developed and its performance characteristics determined by the Surgical Pathology Department [facility]. It has not been cleared or approved by the U. S. Food and Drug Administration. Hawa Reed DO LAB CYTOLOGY ORDERABLES Final Result from Last 3 Months or Most Recently Relevant to Health Maintenance Insurance [id number] [place] [address] Member Subscriber Plan / Payer (Ef fective 2018-Present) Name:Lilia Garcia Relation to Subscriber:Self Name:Lilia Garcia Payer ID:[id number] (NAIC) Group ID:Not on file Type:MEDICAID RISK OTHER Address: [address] [place], [place] [id number] [place] [address] [facility] Advance Directives For more information, please contact: [phone] * Full Code (Latest Code Status on File) Date Activated Date Inactivated Comments 03/30/2022 4:07 AM 03/30/2022 4:18 PM Care Teams City Planning Aide Relationship Specialty Start Date End Date Marisela Cerna NP [facility] [place] [address] PCP - General Nurse Practitioner 04/30/24
--- OUTSIDE RECORDS SUMMARY | 2025-03-02 10:54 | XMS_ITS | Referral Summary ---
Author Organization [facility] Address [address] [place] [address] Care Team Providers Care Land Acquisition Analyst Name Role Phone Nehemiah Marisela KATERINE Primary Care Provider [phone] Allergies Active Allergy Reactions Criticality Noted Date [...] (03/30/2022): Added automatically from request for surgery [id number] Asthma 04/10/2014 Overview (02/28/2017): ASTHMA NOS Hypertension 04/10/2014 Overview (03/01/2017): HYPERTENSION NOS Irritable bowel syndrome 04/10/2014 Overview (03/01/2017): IRRITABLE BOWEL SYNDROME HELLP syndrome (HELLP), third trimester 37 weeks gestation of Immunizations Immunization Administration Dates Next Due Influenza, Split 09/10/2013,09/05/2012, 0 Social History Tobacco Use Types Packs/Day Years [...] on file Legal Sex 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 Gender Identity Not on file Sexual Orientation Not on file Occupation Industry Job Start Date Job End Date [employer] Not on file Not on file Not on file Last Filed Vital Signs Vital Sign Reading [...] 04/24/2023 9:59 AM CDT Plan of Treatment Not on file Procedures Procedure Name Priority Date/Time Associated Diagnosis Comments PAP WITH REFLEX TO HIGH RISK HPV Routine 08/21/2021 9:51 AM CDT from Last 3 Months or Most Recently Relevant to Health Maintenance Results * Pap with reflex to High Risk HPV (08/21/2021 9:51 AM CDT) Pap test 08/21/2021 9:51 AM CDT 08/21/2021 9:51 AM CDT Narrative 08/24/2021 10:50 AM CDT [facility] Department of Pathology [address] [place], [place] [id number] Final Report with Addendum Note to Patients: [...] the details. Patient Name: LILIA GARCIA Address: [address] [place] [address] Gender: F : 1985 (Age: 36) Service: Laboratory Location: Lab [facility] #: [id number] Patient Type: [facility] Lab Taken: 08/21/2021 Received: 08/21/2021 Accessioned:: 08/22/2021 Reported: 08/24/2021 Physician(s): Wade Bryant D.O. Diagnosis: Source of Specimen: Imaged Thinprep Pap Test plus HPV - Supervising Airplane Pilot Cytologic Material Specimen Adequacy: - Satisfactory for evaluation; endocervical/transformation zone component present General Category: - Negative for intraepithelial lesion or malignancy LEMUEL Pierson(ASCP) Report Electronically Reviewed and Signed Out By LEMUEL Pierson(ASCP) 08/24/2021 10:50:50 Addenda: HPV Test Interpretation NEGATIVE for types 16, 18, 31, 33, 35, 39, 45, 51, 52, 56, 58, 59, 66 and 68. Test performed utilizing Gen-Probe Aptima assay. LEMUEL Durant(ASCP) Report Electronically Reviewed and Signed Out By JANA DurantASCP) 08/23/2021 12:55:23 Specimen(s) Received: A: Imaged Thinprep Pap Test plus HPV - Supervising Airplane Pilot Cytologic Material Clinical History: Last Menstrual Period: [...] determined by the Surgical Pathology Department at [facility] as part of an ongoing quality process lead program and in compliance with federally mandated [...] characteristics determined by the Surgical Pathology Department [facility]. It has not been cleared or approved by the U. S. Food and Drug Administration. Hawa Reed DO LAB CYTOLOGY ORDERABLES Final Result from Last 3 Months or Most Recently Relevant to Health Maintenance Insurance [id number] [place] [address] [facility] [id number] [place] [address] Advance Directives For more information, please contact: [phone] * Full Code (Latest Code Status on File) Date Activated Date Inactivated Comments 03/30/2022 4:07 AM 03/30/2022 4:18 PM Care Teams Land Acquisition Analyst Relationship Specialty Start Date End Date Marisela Cerna NP [facility] [address] PCP - General Nurse Practitioner 04/30/24
--- OUTSIDE RECORDS SUMMARY | 2025-03-02 10:54 | XMS_ITS | Clinical Summary ---
Author Organization [facility] Address [address] [facility] [place] [address] Care Team Providers Care Rate Clerk Name Role Phone Unavailable Primary Care Provider Unavailabl e Source Comments [facility],non-owned Affiliates and Associated Physician Practices is amultiple site organization consisting of ambulatory clinics and hospital sitesin [place], [place], [place] and [place]. This disclosure is being madepursuant to the Care Everywhere program and may not contain all information available regarding this patient. Last updated 18.[facility] Allergies Active Allergy Reactions Criticality Noted Date Comments Codeine Nausea and/or Vomiting 11/04/2018 Hydromorphone Psychiatric Medium 04/04/2016 Guaifenesin Dizziness 12/17/2015 felt like a seizure Medications * Be aware that medications may not be up to date on this document. Alwaysverify current medications with the patient. Medication Sig Dispensed Refills Start Date End Date Status albuterol HFA (PROVENTIL;VENTOL IN;PROAIR) 108 (90 BASE) MCG/ACT inhaler 12/06/2017 Active Idbgppdd-Qcm-Lg-F A ( VITAMINS PO) Take 1 tablet by mouth Active pseudoephedrine (SUDAFED) 30 MG tablet Take 30 mg by mouth every 4 hours as needed for Nasal Congestion Active valACYclovir (VALTREX) 500 MG tablet Take 500 mg by mouth 2 times daily Active NIFEdipine CR 24hr (ADALAT CC) 60 MG tablet Take 1 tablet by mouth 2 times daily,before breakfast and supper Take on an empty stomach. 60 tablet 1 12/23/2018 Active labetalol (NORMODYNE; TRANDATE) 200 MG tablet Take 2 tablets by mouth every 12 hours 120 tablet 1 12/22/2018 Active ibuprofen (MOTRIN) 600 MG tablet Take 1 tablet by mouth every 6 hours as needed for Pain 40 tablet 12/22/2018 Active benzocaine-mentho l (DERMOPLAST) 20-0.5 % spray Apply to affected area 3 times daily as needed (perianal pain) 78 g 12/22/2018 Active acetaminophen (TYLENOL) 325 MG tablet Take 2 tablets by mouth every 6 hours as needed Maximum allowable Acetaminophen amount = 4 Grams (4000 mg) / 24 hours. 40 tablet 12/22/2018 Active hemorrhoidal (PREPARATION H) ointment Insert into the rectum 3 times daily as needed for Hemorrhoids 43 g 12/22/2018 Active Vit-Fe Fumarate-FA ( LOW IRON) tablet Take 1 tablet by mouth once daily 30 tablet 11 12/22/2018 Active docusate sodium (COLACE) 100 MG capsule Take 1 capsule by mouth once daily 60 capsule 12/22/2018 Active Active Problems Patient Care Coordination No te Formatting of this note migh t be different from the original. Nopp/mfcc 09/2018 Problem Noted Date Diagnosed Date Elevated blood pressure affecting , ant epartum 12/16/2018 Depression screen 11/24/2018 Overview (11/24/2018): 11/24/2018 Lilia Garcia was screened for depression using the [place] Depression Scale (EPDS) at her [facility] initial evaluation on 11/24/2018. Her initial score at baseline was 9. Based off of her score of 9, Lilia does not warrant follow up. Patient will continue to be screened throughout , at intervals no closer than two weeks, for continued surveillance and early identification of depression until delivery. Patient reports mental health history. Diagnoses include depression, anxiety, bipolar disorder. Abnormal ultrasound, EIF and hydronephrosis 04/2018 Resolved Problems Problem Noted Date Diagnosed Date Resolved Date abnormality in pregnan cy- Right UTD A 2-3 11/24/2018 12/23/2018 Overview (11/24/2018): Images from the original note were not included. JAIL PATIENT--PLEASE CALL [phone] IF TRIAGED OR ADMITTED Care Provider: Dr Ericka Garces [facility] [place] consultants involved: RN- Sherri/Keyur; GILMERM- Alfredo; Urology- Maximino Diagnosis: Right UTD A 2-3 follow up: per 11.24 Urology consult OK to deliver at location of mother's choice, discharge on antibiotic prophylaxis pending further workup, Formal RBUS at >48hrs of life but <1mo, Follow-up in Pediatric Urology at [facility] when US completed. Will decide on need for VCUG at time of initial consultation in clinic Finance Associate: Dr Denny Mariano Planned surveillance: Weekly BPP/Dopplers & NST at [facility] Delivery location, mode, and GA: [facility], TBD- G1 Autopsy indicated: Genetics note: Fur Scraper Concerns: 11/24/18- Patient with mental health history, no medications. Patient and FOB both with learning disabilities and patient reports problems with memory. Limited income and limited family support. Care plan based on evaluation and is subject to change based on assessment. See Images or Cardiac under Chart Review for US/ ECHO/ MRI reports. Immunizations Name Administration Dates Next Due INFLUENZA VACCINE, QUADR. (F LUZONE; FLULAVAL; FLUARIX; AFLURIA QUADRIVALENT; 6MO+), 0.5 ML (IIV4) 12/21/2018 TDAP (7yrs+) 12/21/2018 Family History Medical History Relation Name Comments Diabetes - Type 2 Father Diabetes - Type 2 Paternal Grandmother Relation Name Status Comments Father Paternal Grandmother Social History Tobacco Use Types Packs/Day Years Used Date Smoking Tobacco: Former Cigarettes Q uit: 05/03/2018 Smokeless Tobacco: Never Alcohol Use Standard Drinks/Week Comments No 0 (1 standard drink = 0.6 oz pur e alcohol) socially before Sex and Gender Information Value Date Recorded Sex Assigned at Not on file Gender Identity Not on file Sexual Orientation Not on file Last Filed Vital Signs Vital Sign Reading Time Taken Comments Blood Pressure 136/64 12/22/2018 3:15 PM [employer]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 Pulse 88 12/22/2018 3:15 PM 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 Temperature 36.7 C (98 F) 12/22/2018 3:15 PM MID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 Respiratory Rate 16 12/22/2018 3:15 PM MID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 Oxygen Saturation 98% 12/22/2018 3:15 PM MID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 Inhaled Oxygen Concentration - - Weight 98.9 kg (218 lb) 12/17/2018 12:13 AM MID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 Height 175.3 cm (5' 9 ) 12/17/2018 12:13 AM MID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 Body Mass Index 32.19 12/17/2018 12:13 AM MID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 Plan of Treatment Health Maintenance Due Date Last Done Comments HIV SCREENING 2000 HEPATITIS C SCREENING 03/22/2003 HEPATITIS B VACCINE (1 of 3 - 19+ 3-dose series) 2004 PAP with HPV 2015 COVID-19 VACCINE (1 - 2023-2 5 season) 2024 DEPRESSION SCREENING 11/25/2024 INFLUENZA VACCINE (Season Ended) 2025 12/21/19 19 DTAP/TDAP/TD VACCINES (2 - T d or Tdap) 12/21/2028 12/21/2018 ZOSTER VACCINE (1 of 2) 2035 HIB VACCINE Aged Out No longer eligi ble based on patient's age to complete this topic HPV VACCINE Aged Out No longer eligi ble based on patient's age to complete this topic MENINGOCOCCAL (Group B) VACC INE SHARED DECISION-MAKING Aged Out No longer eligibl e based on patient's age to complete this topic MENINGOCOCCAL GROUPS A/C/Y/W VACCINE Aged Out No longer eligible b ased on patient's age to complete this topic PNEUMOCOCCAL VACCINE Aged Out No long er eligible based on patient's age to complete this topic Advance Directives * Full Code (Latest Code Status on File) Date Activated Date Inactivated Comments 12/16/2018 11:48 PM 12/22/2018 7:11 PM
--- OUTSIDE RECORDS SUMMARY | 2025-03-02 10:55 | XMS_ITS | Clinical Summary ---
Author Organization [facility] Address [address] [place] [address] Phone Care Team Providers Care Poultry Hatchery Man Name Role Phone Corey Cowart Mame DPM Unavailable [phone] Marisela Cerna APRN Primary Care Provider [phone] Allergies Active Allergy Reactions Criticality Noted Date Comments Hydromorphone Hcl Anxiety 04/04/2016 Guaifenesin Other (see Comments) 12/17/2015 felt like a seizure Medications albuterol (PROVENTIL HFA, VENTOLIN HFA) 108 (90 Base) MCG/ACT Aerosol Solution take 2 Puffs by inhalation every 6 hours as needed for Wheezing. 1 Inhaler 8 Active VENTOLIN HFA 108 (90 Base) MCG/ACT Aerosol Solution take 2 Puffs by inhalation every 6 hours as needed for Wheezing or Cough. 8.5 g 8 Active albuterol 108 (90 Base) MCG/ACT Aerosol Solution take 2 Puffs by inhalation every 6 hours as needed for Wheezing or Cough. 1 Inhaler 9 Active ondansetron (ZOFRAN-ODT) 4 MG TABLET DISPERSIBLE Take 1 Tablet by mouth every 8 hours as needed for Nausea - 1st line. 10 Tablet 4 Active famotidine (PEPCID) 20 MG Tablet Take 1 Tablet by mouth 2 times daily as needed for Heartburn. 30 Tablet 4 Active albuterol 108 (90 Base) MCG/ACT Aerosol Solution take 2 Puffs by inhalation every 6 hours as needed for Wheezing. 8 g 4 Active budesonide-formo terol fumarate (SYMBICORT) 160-4.5 MCG/ACT Aerosol take 2 Puffs by inhalation 2 times daily. 10.2 g 4 Active Active Problems Problem Noted Date Diagnosed Date Tarsal tunnel syndrome 10/23/2016 Foreign body in left foot 08/08/2016 Open nondisplaced fracture o f tarsal bone of left foot with routine healing 05/07/2016 Traumatic ulcer of left foot limited to breakdow n of skin 05/02/2016 Open fracture of left foot with routine healing 03/22/2016 Cellulitis of foot 03/20/2016 Bipolar affective disorder 03/20/2016 Asthma 03/20/2016 Anxiety disorder 03/20/2016 ADHD (attention deficit hyperactivity disorder) 03/20/2016 IBS (irritable bowel syndrome) 03/20/2016 Constipation 03/20/2016 Resolved Problems Problem Noted Date Diagnosed Date Resolved Date Traumatic ulcer of left foot limited to breakdown of skin 05/02/2016 05/02/2016 Traumatic ulcer of left foot with fat layer exposed 04/04/2016 05/02/2016 Encounters Date Type Department Care Team Description 12/13/2024 12:04 PM WINDOW SHADE RING COVERER - 12/13/2024 2:42 PM WINDOW SHADE RING COVERER Emergency [facility] Emergency [address] [place] [id number] Maggy Reyes MD Influenza A Discharge Disposition: Discharged to home or Selfcare 12/13/2024 Travel from Last 3 Months Family History Medical History Relation Name Comments Diabetes Father Relation Name Status Comments Father Alive Mother Alive Social History Tobacco Use Types Packs/Day Years Used Date Smoking Tobacco: Some Days Smokeless Tobacco: Never Tobacco Cessation:Counseling Given: Yes Alcohol Use Standard Drinks/Week Comments Yes 0 (1 standard drink = 0.6 oz pur e alcohol) Comments No Sex and Gender Information Value Date Recorded Sex Assigned at Not on file Legal Sex Female 11:19 PM CDT Gender Identity Not on file Sexual Orientation Not on file Last Filed Vital Signs Vital Sign Reading Time Taken Comments Blood Pressure 135/91 12/13/2024 12:00 PM WINDOW SHADE RING COVERER Pulse 99 12/13/2024 12:00 PM WINDOW SHADE RING COVERER Temperature 38.4 C (101.1 F) 12/13/2024 2:08 PM WINDOW SHADE RING COVERER Respiratory Rate 16 12/13/2024 12:00 PM WINDOW SHADE RING COVERER Oxygen Saturation 99% 12/13/2024 12:00 PM WINDOW SHADE RING COVERER Inhaled Oxygen Concentration - - Weight 87.1 kg (192 lb) 12/13/2024 12:00 PM WINDOW SHADE RING COVERER Height 175.3 cm (5' 9 ) 12/13/2024 12:00 PM WINDOW SHADE RING COVERER Body Mass Index 28.35 12/13/2024 12:00 PM WINDOW SHADE RING COVERER Plan of Treatment Health Maintenance Due Date Last Done Comments Hepatitis C Virus (HCV) Screening 1985 Hepatitis B Immunization (1 of 3 - 19+ 3-dose series) 2004 Pneumococcal Immunization Combined (1 of 2 - PCV) 2004 Pap Smear 2006 Cervical Cancer Screening (CCS) 2015 HPV/Cotest 2015 Influenza Immunization (#1) 07/26/202411/26, 09/10/2016, 08/25/2015, Additional history exists SARS-COV-2 Immunization ( season) 2024 Respiratory Syncytial Virus (RSV) Immunization (Adult) (1 - 1-dose 75+ series) 2060 DTaP/Tdap/Td Immunization Discontinued 12/21/2018, 11/2015 TdaP Immunization Completed 12/21/2018, 03/25/2016 Meningococcal Immunization (ACWY) Aged Out No longer eligible based on patient's age to complete this topic Rotavirus Immunization Aged Out No lo nger eligible based on patient's age to complete this topic Procedures Procedure Name Priority Date/Time Associated Diagnosis Comments XR CHEST 2 VIEWS STAT 12/13/2024 1:13 PM WINDOW SHADE RING COVERER RSV,SARS-COV-2,INFL UENZA A&B BY PCR STAT 12/13/2024 12:04 PM WINDOW SHADE RING COVERER from Last 3 Months Results * XR CHEST 2 VIEWS (12/13/2024 1:13 PM WINDOW SHADE RING COVERER) Anatomical Region Laterality Modality Chest N/A Digital Radiogra phy 12/13/2024 2:19 PM WINDOW SHADE RING COVERER Impressions 12/13/2024 2:21 PM WINDOW SHADE RING COVERER IMPRESSION: No acute radiographic abnormality. Narrative 12/13/2024 2:21 PM WINDOW SHADE RING COVERER EXAM DESCRIPTION: XR CHEST 2 VIEWS REASON FOR STUDY: Cough with shortness of breath and congestion for 2 days. History of asthma. TECHNIQUE: PA and lateral radiographic views of the chest COMPARISON: Chest radiograph 06/03/2024 FINDINGS: LUNGS/PLEURAE: No consolidation or pneumothorax. No pleural effusion. HEART/MEDIASTINUM: Heart size is normal. Normal mediastinal and hilar contours. HARDWARE/LINES/TUBES: None. BONES: Mild thoracic spondylosis. THIS IS AN ELECTRONICALLY VERIFIED FINAL REPORT 12/13/2024 2:19 PM - Electronically signed by Allan Kolb M.D. LB: LB Report ID: [id number] Reading Location: [id number] Procedure Note Allan Kolb MD - 12/13/2024 EXAM DESCRIPTION: XR CHEST 2 VIEWS REASON FOR STUDY: Cough with shortness of breath and congestion for 2 days. History of asthma. TECHNIQUE: PA and lateral radiographic views of the chest COMPARISON: Chest radiograph 06/03/2024 FINDINGS: LUNGS/PLEURAE: No consolidation or pneumothorax. No pleural effusion. HEART/MEDIASTINUM: Heart size is normal. Normal mediastinal and hilar contours. HARDWARE/LINES/TUBES: None. BONES: Mild thoracic spondylosis. THIS IS AN ELECTRONICALLY VERIFIED FINAL REPORT 12/13/2024 2:19 PM - Electronically signed by Allan Kolb M.D. LB: LB Report ID: [id number] Reading Location: [id number] IMPRESSION: No acute radiographic abnormality. Maggy Reyes MD [facility] Fin al Result * (ABNORMAL) RSV,SARS-COV-2,INFLUENZA A&B BY PCR (12/13/2024 12:04 PM WINDOW SHADE RING COVERER) FLU A Positive(A) Negative, Error 12/13/2024 1:05 PM WINDOW SHADE RING COVERER [facility] FLU B Negative Negative 12/13/2024 1:05 PM WINDOW SHADE RING COVERER [facility] RESP SYNC VIRUS Negative Negative 1:05 PM WINDOW SHADE RING COVERER [facility] SARSCOV2 NOT DETECTED (Reference Range for this test is Not Detected) 12/13/2024 1:05 PM WINDOW SHADE RING COVERER [facility] Comment:This test was perfor med by a Reverse Outside Sales Manager PCR Method. Swab NASOPHARYNGEAL SWAB / Unknown Non-Phlebotomy Collection / Unknown 12/13/2024 12:04 PM WINDOW SHADE RING COVERER 12/13/2024 12:26 PM WINDOW SHADE RING COVERER Narrative [facility] - 12/13/2024 1:05 PM WINDOW SHADE RING COVERER This test has not been FDA cleared or approved; the test has been authorized by FDA under an Emergency Use Authorization (EUA) for use by laboratories certified under the CLIA that meet the requirements to perform moderate, high or waived complexity tests. Authorized Fact Sheets about this test for providers and patients are available at: https://www.fda.gov/medical-devices/tyjzqwyxb-mnqkuobfra-xvnytjx-devices/emergen -us e-authorizations Fauzia Conner Page PAC MICROBIOLOGY - GENERAL ORDER MANSOOR Final Result [facility] [address] [place] [address] from Last 3 Months Insurance MEDICAID [employer] Advance Directives * Full Code (Latest Code Status on File) Date Activated Date Inactivated Comments 03/30/2016 2:42 PM 12/06/2017 7:57 PM * Full Code Date Activated Date Inactivated Comments 03/24/2016 12:27 PM 03/27/2016 8:29 PM CPR-Full Theo atment: FULL ARREST: Attempt Resuscitation/CPR wit intubation and mechanical ventilation. PRE-ARREST: Use entire range of life support measures to stabilize the patient. Care Teams Poultry Hatchery Man Relationship Specialty Start Date End Date Marisela Cerna APRN [address] [place] [id number] PCP - General Advanced Practice Nurse 12/13/24 Corey Cowart DPM Consulting Physician Podiatry 05/07/16
[2025-03-02 19:15] LABS: Hematocrit 42.6 % (37.0-47.0); Hemoglobin 13.2 g/dL (12.0-15.0); Mean Corpuscular Volume 87.1 fl (80-100); Mean Platelet Volume 10.6 fl (7.4-10.4); Platelet Count Result 292 k/mm3 (150-375); Red Blood Count 4.89 M/mm3 (4.2-5.4); Red Cell Distribution Width 13.6 % (11.5-14.5); White Blood Count 10.5 K/mm3 (4.5-10.0)
[2025-03-02 20:34] LABS: Alanine Aminotransferase 28 U/L (6-35); Albumin Level 4.5 g/dL (3.5-5.1); Alkaline Phosphatase 78 U/L (38-126); Anion Gap 10 mmol/L (4-12); Aspartate Amino Transferase 55 U/L (14-36); Bilirubin,Total 0.3 mg/dL (0.2-1.3); Blood Urea Nitrogen 8 mg/dL (7-17); Calcium 9.1 mg/dL (8.4-10.2); Carbon Dioxide 27 mmol/L (22-30); Chloride 102 mmol/L (98-107); Cholesterol 187 mg/dL (0-200); Estimated Glomerular Filt Rate > 60; Glucose 91 mg/dL (65-110); HDL Direct 55 mg/dL; Potassium 4.1 mmol/L (3.4-5.0); Sodium 139 mmol/L (137-145); Triglycerides 85 mg/dL (<150)
[2025-03-02 20:40] LABS: Hemoglobin A1C 5.2 % (<5.7)
[2025-03-02 20:45] LABS: LDL Cholesterol Direct 105 mg/dL
[2025-03-02 21:04] LABS: Thyroid Stimulating Hormone 0.991 uIU/mL (0.465-4.680)
== END 2025-03-02 09:55 | disposition home or self-care (01) ==
LOC: ANHBWCLAB 09:56
PROVIDERS: PCP Nurse Practitioner Adult Health; Visit Provider Nurse Practitioner Adult Health
DX: Z13.9 Encounter for screening, unspecified (principal); R63.1 Polydipsia
CPT/HCPCS: 36415; 80053; 80061; 82607; 83036; 84443; 85027

== ENCOUNTER 2025-06-02 09:19 | Outpatient (CLI) | payer OTHER, SELFPAY ==
--- NOTE | ~2025-06-02 | US_ITS ---
Limited Abdominal Sonogram: Real-time sonographic imaging of the right upper quadrant was performed. Clinical History: Dyspepsia Findings: The liver appears echogenic, with no evidence of mass lesion or bile duct dilatation. Main portal vein demonstrates normal direction of flow. The gallbladder is well distended, and appears no rmal with no evidence of gallstone or wall thickening. The common bile duct measures 4 mm. The visua lized pancreas, aorta, and IVC are unremarkable. Impression: Diffuse fatty infiltration of liver. Reviewed, dictated and finalized at location M. Impression: Diffuse fatty infiltration of liver.
--- NOTE | ~2025-06-02 | US_ITS ---
EXAMINATION: US thyroid DATE: 06/02/2025 10:25 INDICATION: Neck swelling TECHNIQUE: Multiple ultrasound images of the thyroid were obtained. COMPARISON: None. FINDINGS: The right thyroid lobe measures 6.3 4.0 x 3.1 cm. The left thyroid lobe measures 4.7 x 1.3 x 1.8 cm. Thyroid isthmus measures 8 mm in thickness. 3.7 cm solid isoechoic wider than tall nodule in the mid to inferior right thyroid with smooth margins and without echogenic foci (TI-RADS 3, mildly suspicio us , FNA if >=2.5 cm, annual followup is >=1.5 cm). There is a second 3.1 cm solid heterogeneously is oechoic and hypoechoic nodule with smooth to ill-defined margins and without echogenic foci at the ju nction of the right thyroid lobe and isthmus (TI-RADS 4, moderately suspicious , FNA if >=1.5 cm, doroteo ual followup is >=1 cm). 1.8 cm wider than tall predominantly solid heterogeneously hypoechoic nodule in the superior right thyroid with lobular margins and without echogenic foci, also TI-RADS 4. Final ly there is a 5 mm solid hypoechoic TI RADS 4 nodule in the thyroid isthmus. Normal echotexture and e chogenicity throughout the left thyroid lobe without discrete nodules. IMPRESSION: 1. Multiple nodules in the enlarged right thyroid lobe and isthmus 2 of which meet criteria for ultra sound-guided biopsy. Would recommend biopsy of the 3.1 cm TI RADS 4 nodule and could also consider bi opsy of the larger 3.76 matter TI RADS 3 nodule. Reviewed, dictated and finalized at location A. IMPRESSION: 1. Multiple nodules in the enlarged right thyroid lobe and isthmus 2 of which m eet criteria for ultrasound-guided biopsy. Would recommend biopsy of the 3.1 cm TI RADS 4 nodule and could also consider biopsy of the larger 3.76 matter TI R ADS 3 nodule.
--- OUTSIDE RECORDS SUMMARY | 2025-06-02 09:29 | XMS_ITS | Referral Summary ---
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 Patient Name: LILIA GARCIA Address: [address] [place] [address] Gender: F : 1985 (Age: 36) Service: Laboratory Location: Lab [facility] #: [id number] Patient Type: [facility] Taken: 08/21/2021 Received: 08/21/2021 Accessioned:: 08/22/2021 Reported: 08/24/2021 Physician(s): Wade Bryant D.O. Diagnosis: Source of Specimen: Imaged Thinprep Pap Test plus HPV - Shelf Stocker Cytologic Material Specimen Adequacy: - Satisfactory for [...] Imaged Thinprep Pap Test plus HPV - Shelf Stocker Cytologic Material Clinical History: Last Menstrual Period: [...] determined by the Surgical Pathology Department at [facility] as part of an ongoing quality project manager program and in compliance with federally mandated [...] determined by the Surgical Pathology Department [facility]. It has not been cleared or approved by the U. S. Food and Drug Administration. Hawa Reed DO LAB CYTOLOGY ORDERABLES Final Result from Last 3 Months or Most Recently Relevant to Health Maintenance Insurance [id number] [place] [address] [facility] [id number] [place] [address] Advance Directives For more information, please contact: [phone] * Full Code (Latest Code Status on File) Date Activated Date Inactivated Comments 03/30/2022 4:07 AM 03/30/2022 4:18 PM Care Teams Group Manager Relationship Specialty Start Date End Date Marisela Cerna NP [facility] [place] [address] PCP - General Nurse Practitioner 04/30/24
--- OUTSIDE RECORDS SUMMARY | 2025-06-02 09:29 | XMS_ITS | Data Portability ---
Author Organization [facility] [employer], Main Office Address [address] [place] [address] Care Team Providers Care Advisory Internship Name Role Phone ZEKE DUARTE Primary Care Provider Assessment Encounter Date Assessment Date Assessment LastModified by Organization Details LastModified Time 03/11/2024 03/11/2024 Flu shot: 08/2023 COVID vaccines: declines Tdap: 03/2016 WWE: overdue, recommended [email or web address] Not available 03/11/2024 15:52:52 Plan of Treatment Reminders Order Date Submit Date Provider Last Modified By Organization Details Last Modified Time Details Appointments None recorded. Lab CBC w/ manual diff [address] (Lab), [address] [place], [address], 4 10:26:44 glycohemogl obin, total, blood [address] (Lab), [address] [place], [address], 4 10:26:44 lipid panel, serum 2023 024 [facility] (Lab), [address] [place], [address], 4 21:28:28 TSH, serum, reflex free T4 [address] (Lab), [address] [place], [address], 08:44:[address] referral - Please call patient to schedule an appointment with Dr. Iyer. Thank you. 2023 [email or web address] [facility], [address] [facility], [place], [address], 08:49:29 Procedures None recorded. Surgeries None recorded. Imaging None recorded. Medication Orders permethrin 5 % topical cream 2023 [facility] #[id number], [address], [place], [place], [id number], 16:48:12 quetiapine 50 mg tablet 2023 [facility][id number], [address], [place], [place], [id number], 15:54:28 Breztri Aerosphere 160 mcg-9mcg-4. 8mcg/actuat ion HFA aerosol inhaler 2023 024 [email or web address]80576, [address], [place], [place], [id number], 12:35:28 Airsupra 90 mcg-80 mcg/actuati on HFA aerosol inhaler 2023 024 [email or web address] #72540, [address], [place], [place], [id number], 4 16:47:01 Kenalog 40 mg/mL suspension for injection 2023 Not available 16:52:38 Aquaphor Itch Relief 1 % topical ointment 2023 [place] [facility] #69871, [address], [place], [place], [id number], 4 15:54:25 Symbicort 160 mcg-4.5 mcg/actuati on HFA aerosol inhaler 2023 024 [facility] #23973, [address], [place], [place], [id number], 4 12:05:59 quetiapine 25 mg tablet 2023 024 [facility] #34391, [address], [place], [place], [id number], 4 12:05:57 bupropion HCl XL 150 mg 24 hr tablet, extended release 2023 024 [id number], [address], [place], [place], [id number], 4 14:55:18 Patient TargetsNo targets recorded. 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 Iyer. Thank you. Referring Physician: Zeke Duarte, Family Medicine, Encounter Date: 03/11/2024 Results Created Date Observation Date Name Description Value Unit Range Abnormal Flag Note LastModifiedBy Organization Detail LastModifiedTime 12/06/1912/07/2021 CBC (INCL UDES DIFF/ PLT) white blood cell count 12.5 thous and/u L 3.8-10 .8 high Not Available [facility] [address] [place], [address], 12/07/2021 12:10:49 12/06/1912/07/2021 CBC (INCL UDES DIFF/ PLT) red blood cell count 5.33 mikel on/uL 3.80-5 .10 high Not Available [address], [address], 12/07/2021 12:10:49 12/06/19 22 12/07/2021 CBC (INCL UDES DIFF/ PLT) hemoglobin 14.2 g/dL 11.7-1 5.5 normal Not Available [address], [address], 12/07/2021 12:10:49 12/06/1912/07/2021 CBC (INCL UDES DIFF/ PLT) hematocrit 44.0 % 35.0-4 5.0 normal Not Available [address], [address], 12/07/2021 12:10:49 12/06/19 22 12/07/2021 CBC (INCL UDES DIFF/ PLT) MCV 82.6 fL 80.0-1 00.0 normal Not Available [address], [address], 12/07/2021 12:10:49 12/06/19 22 12/07/2021 CBC (INCL UDES DIFF/ PLT) MCH 26.6 pg 27.0-3 3.0 low Not Available [address], [address], 12/07/2021 12:10:49 12/06/19 22 12/07/2021 CBC (INCL UDES DIFF/ PLT) MCHC 32.3 g/dL 32.0-3 6.0 normal Not Available [address], [address], 12/07/2021 12:10:49 12/06/19 22 12/07/2021 CBC (INCL UDES DIFF/ PLT) RDW 13.2 % 11.0-1 5.0 normal Not Available [address], [address], 12/07/2021 12:10:49 12/06/19 22 12/07/2021 CBC (INCL UDES DIFF/ PLT) platelet count 379 thous and/u L 140-40 0 normal Not Available [address], [address], 12/07/2021 12:10:49 12/06/19 22 12/07/2021 CBC (INCL UDES DIFF/ PLT) MPV 10.6 fL 7.5-12 .5 normal Not Available [facility] [address], [address], 12/07/2021 12:10:49 12/06/19 22 12/07/2021 CBC (INCL UDES DIFF/ PLT) absolute neutrophils 8113 cells /uL 1500-7 800 high Not Available [address], [address], 12/07/2021 12:10:49 12/06/19 22 12/07/2021 CBC (INCL UDES DIFF/ PLT) absolute lymphocytes 3388 cells /uL 850-39 00 normal Not Available [address], [address], 12/07/2021 12:10:49 12/06/19 22 12/07/2021 CBC (INCL UDES DIFF/ PLT) absolute monocytes 413 cells /uL 200-95 0 normal Not Available [address], [address], 12/07/2021 12:10:49 12/06/1912/07/2021 CBC (INCL UDES DIFF/ PLT) absolute eosinophils 525 cells /uL 15-500 high Not Available [facility] [address], [address], 12/07/2021 12:10:49 12/06/19 22 12/07/2021 CBC (INCL UDES DIFF/ PLT) absolute basophils 63 cells /uL 0-200 normal Not Available [address], [address], 12/07/2021 12:10:49 12/06/19 22 12/07/2021 CBC (INCL UDES DIFF/ PLT) neutrophils 64.9 % normal Not Available [address], [address], 12/07/2021 12:10:49 12/06/19 22 12/07/2021 CBC (INCL UDES DIFF/ PLT) lymphocytes 27.1 % normal Not Available [address], [address], 12/07/2021 12:10:49 12/06/19 22 12/07/2021 CBC (INCL UDES DIFF/ PLT) monocytes 3.3 % normal Not Available [address], [address], 12/07/2021 12:10:49 12/06/1912/07/2021 CBC (INCL UDES DIFF/ PLT) eosinophils 4.2 % normal Not Available [address], [address], 12/07/2021 12:10:49 12/06/1912/07/2021 CBC (INCL UDES DIFF/ PLT) basophils 0.5 % normal Not Available [address], [address], 12/07/2021 12:10:49 12/06/1912/07/2021 COMPR EHENS YOLETTE METAB OLIC PANEL glucose 93 mg/dL 65-99 normal Fasti ng refer ence inter mannie Not Available [facility] [address], [address], 12/07/2021 12:10:48 12/06/1912/07/2021 COMPR EHENS YOLETTE METAB OLIC PANEL urea nitrogen (BUN) 6 mg/dL 7-25 low Not Available [address], [address], 12/07/2021 12:10:48 12/06/19 22 12/07/2021 COMPR EHENS YOLETTE METAB OLIC PANEL creatinine 0.56 mg/dL 0.50-1 .10 normal Not Available [address], [address], 12/07/2021 12:10:48 12/06/19 22 12/07/2021 COMPR EHENS YOLETTE METAB OLIC PANEL eGFR non-afr. thai 120 mL/mi n/1.7 3m2 > or = 60 normal Not Available [address], [address], 12/07/2021 12:10:48 12/06/19 22 12/07/2021 COMPR EHENS YOLETTE METAB OLIC PANEL eGFR 139 mL/mi n/1.7 3m2 > or = 60 normal Not Available [address], [address], 12/07/2021 12:10:48 12/06/19 22 12/07/2021 COMPR EHENS YOLETTE METAB OLIC PANEL BUN/creatini ne ratio 11 (calc ) 6-22 normal Not Available [address], [address], 12/07/2021 12:10:48 12/06/19 22 12/07/2021 COMPR EHENS YOLETTE METAB OLIC PANEL sodium 140 mmol/ L 135-14 6 normal Not Available [address], [address], 12/07/2021 12:10:48 12/06/19 22 12/07/2021 COMPR EHENS YOLETTE METAB OLIC PANEL potassium 4.3 mmol/ L 3.5-5. 3 normal Not Available [address], [place], [address], 12/07/2021 12:10:48 12/06/19 22 12/07/2021 COMPR EHENS YOLETTE METAB OLIC PANEL chloride 102 mmol/ L 98-110 normal Not Available [address] , [place], [address], 12/07/2021 12:10:48 12/06/19 22 12/07/2021 COMPR EHENS YOLETTE METAB OLIC PANEL carbon dioxide 27 mmol/ L 20-32 normal Not Available [address], [address], 12/07/2021 12:10:48 12/06/19 22 12/07/2021 COMPR EHENS YOLETTE METAB OLIC PANEL calcium 9.1 mg/dL 8.6-10 .2 normal Not Available [address], [address], 12/07/2021 12:10:48 12/06/19 22 12/07/2021 COMPR EHENS YOLETTE METAB OLIC PANEL protein, total 7.1 g/dL 6.1-8. 1 normal Not Available [address], [place], [address], 12/07/2021 12:10:48 12/06/19 22 12/07/2021 COMPR EHENS YOLETTE METAB OLIC PANEL albumin 4.3 g/dL 3.6-5. 1 normal Not Available [facility] [address] [place] [address] [place], [address], 12/07/2021 12:10:48 12/06/19 22 12/07/2021 COMPR EHENS YOLETTE METAB OLIC PANEL globulin 2.8 g/dL_ (calc ) 1.9-3. 7 normal Not Available [address] [place], [address], 12/07/2021 12:10:48 12/06/19 22 12/07/2021 COMPR EHENS YOLETTE METAB OLIC PANEL albumin/glob ulin ratio 1.5 (calc ) 1.0-2. 5 normal Not Available [address], [address], 12/07/2021 12:10:48 12/06/19 22 12/07/2021 COMPR EHENS YOLETTE METAB OLIC PANEL bilirubin, total 0.2 mg/dL 0.2-1. 2 normal Not Available [address], [address], 12/07/2021 12:10:48 12/06/19 22 12/07/2021 COMPR EHENS YOLETTE METAB OLIC PANEL alkaline phosphatase 76 U/L 31-125 normal Not Available [address], [address], 12/07/2021 12:10:48 12/06/19 22 12/07/2021 COMPR EHENS YOLETTE METAB OLIC PANEL AST 19 U/L 10-30 normal Not Available [address], [address], 12/07/2021 12:10:48 12/06/19 22 12/07/2021 COMPR EHENS YOLETTE METAB OLIC PANEL ALT 23 U/L 6-29 normal Not Available [address], [address], 12/07/2021 12:10:48 12/06/19 22 12/07/2021 LIPID PANEL , STAND LEXI cholesterol, total 208 mg/dL <200 high Not Available [address], [address], 12/07/2021 12:10:48 12/06/19 22 12/07/2021 LIPID PANEL , STAND LEXI HDL cholesterol 65 mg/dL > or = 50 normal Not Available [address], [address], 12/07/2021 12:10:48 12/06/19 22 12/07/2021 LIPID PANEL , STAND LEXI triglyceride s 138 mg/dL <150 normal Not Available [facility] [address] [place], [address], 12/07/2021 12:10:48 12/06/19 22 12/07/2021 LIPID PANEL , STAND LEXI LDL-choleste rol 117 mg/dL _(tania c) high Refer ence range : <100 Aranza able range <100 mg/dL for prima ry preve ntion ; <70 mg/dL for patie nts with CHD or diabe tic patie nts with > or = 2 CHD risk facto rs. LDL-C is now calcu lated using the Navya n-Hop kins calcu nliesh n, which is a valid ated novel metho d lindsayi ashley rodríguez r accur acy than the Fried darien equat ion in the estim ation of LDL-C . Navya melissa SS et al. BERNADINE. 2013; 310(1 9): 2061- 2068 (http ://ed ucati on.Qu Kiwiple. com/f aq/FA Q164) Not Available [address], [place], [address], 12/07/2021 12:10:48 12/06/19 22 12/07/2021 LIPID PANEL , STAND LEXI chol/HDLC ratio 3.2 (calc ) <5.0 normal Not Available [facility] [address] [place], [address], 12/07/2021 12:10:48 12/06/19 22 12/07/2021 LIPID PANEL , STAND LEXI non HDL cholesterol 143 mg/dL _(tania c) <130 high For patie nts with diabe hodan plus 1 major ASCVD risk facto r, treat ing to a non-H DL-C goal of <100 mg/dL (LDL- C of <70 mg/dL ) is consi dered a thera peuti c optio n. Not Available [facility] [address], [place], [address], 12/07/2021 12:10:48 12/04/1912/04/2023 LIPID PANEL cholesterol 192 mg/dL 140-19 9 NIH ALIREZA NSUS RECOM MENDA TION FOR HERNAN STERO L: ADULT CHILD LOW RISK: <200 <170 BORDE RLINE : <200- 239 ----- HIGH RISK: >240 >200 Not Available [facility] (Lab) [address] [place], [address], 12/04/2023 21:28:27 12/04/1912/04/2023 LIPID PANEL triglyceride s 51 mg/dL 0-150 NIH ALIREZA NSUS REPOR T RECOM MENDA TION FOR TRIGL YCERI CHANELLE: ADULT CHILD LOW RISK: <150 ----- BODER LINE: 150-1 99 ----- HIGH RISK: >200 ----- Not Available [facility] (Lab) [address] [place], [address], 12/04/2023 21:28:27 12/04/19 24 12/04/2023 LIPID PANEL HDL cholesterol 61 mg/dL 40- Not Available [facility] (Lab) [address] [place], [address], 12/04/2023 21:28:27 12/04/19 24 12/04/2023 LIPID PANEL LDL cholesterol, calculated 121 mg/dL 0-130 NIH ALIREZA NSUS REPOR T RECOM MENDA TIONS FOR LDL: ADULT CHILD LOW RISK <130 <110 (OPTI MAL LDL) <100 ----- BORDE RLINE : 130-1 59 ----- HIGH RISK: >160 >130 A TRIGL YCERI DE RESUL T >400 INVAL IDATE S THE CALCU LATIO N FOR LDL FRACT IONAT ION - THE LDL RESUL T WILL NOT BE REPOR ADRIANNA. Not Available [facility] (Lab) [address] [place], [address], 12/04/2023 21:28:27 12/04/19 24 12/04/2023 TSH W/REF AUBREY FT4 TSH with reflex free T4 0.779 uIU/m L 0.465- 4.680 Not Available [facility] (Lab) [address] [facility], [place], [address], 12/04/2023 21:54:14 Result Notes None recorded. Problems Name Problem SNOMED Code Status Onset Date Resolution Date Notes Provider Name and Address Organization Details Recorded Time Chronic back pain 807641654 Active 2016 Not Available [employer] 3 18:06:10 Insomnia 914276142 Active 2016 Not Available [facility] 3 18:06:10 Asthma 000782771 Active 2016 Not Available [facility] 3 18:06:10 Contact dermatitis caused by urushiol from Eastern poison vikki [id number] Completed 201603/11/[address] [facility] [facility] [address], [place], [address] , [employer] 4 15:05:13 Panic attack 853410985 Completed 202003/11/[address] [facility], [facility] [address], [place], [address] , [employer] 4 15:05:21 Mixed anxiety and depressive disorder 489662500 Active 2016 Not Available [facility] 3 18:06:10 Gastroesop hageal reflux disease 039607854 Active 2016 Not Available [facility] 3 18:06:10 Overweight 921225073 Active 2016 Not Available [facility] 3 18:06:10 Headache 15586536 Active 2016 Not Available [facility] 3 18:06:10 Seasonal allergic rhinitis 261438967 Active 2016 Not Available [employer] 3 18:06:10 Hypothyroi dism 65979890 Active Not Available [facility] 3 18:06:11 Blood leukocyte number above reference range 880680327 Active Not Available [facility] 3 18:06:11 Idiopathic urticaria 97110206 Completed 202103/11/2024 ADDI Webb [address], [place], [address] , [employer] 4 15:05:17 Anxiety 83297824 Active 2020 Not Available [facility] 3 18:06:11 Hyperlipid emia 75105208 Active 2016 Not Available [employer] 3 18:06:11 Herpes simplex 53521589 Active 2016 Not Available [facility] 3 18:06:11 Bipolar disorder 50807183 Active 2023 Ruth Delatorre NP [address], [place], [address] , [employer] 4 11:55:44 Smoker 11950528 Active 2023 Ruth Delatorre NP [address], [place], [address] , [employer] 4 12:02:49 Atopic dermatitis 89238352 Active 2023 ADDI Webb [address], [place], [address] , [employer] 4 15:42:26 Increased thirst 762167304 Active 2023 ADDI Webb [address], [place], [address] , [employer] 4 15:49:19 Crusted scabies 816613528 Active 2023 ADDI Webb [address], [place], [address] , [employer] 4 16:47:33 Problem Notes None recorded. Procedures Surgical History Date Name Laterality Status Provider Name and Address Organization Details Recorded Time Removal of ovarian cyst(s) completed Not Available [facility] 01/23/2023 18:05:05 appendectomy completed Not Available [facility] 01/23/2023 18:05:05 Imaging Results None recorded. Procedure Notes None recorded. Medical Equipment None Reported. Allergies Allergen ID Allergen Name Allergen Category Reaction Reaction Severity Criticality Documentation Date Start Date Code Code System Note Provider Name and Address Organization Details Recorded Time 11398 Robitussi n medicatio n Not available Not available Not available 01/23/2023 64347 2 RxNorm SEIZU RES Not Available [facility] 3 18:07:20 [address]754 Dilaudid medicatio n vomiting Not available Not available 01/23/2023 81489 3 RxNorm PANIC ATTAC KS Not Available [facility] 3 18:07:21 Medications Name Sig Start Date Stop Date Status Note LastModified by Organization Details LastModified Time quetiapin e 25 mg tablet TAKE 1 TABLET BY MOUTH EVERY DAY active Not Available Not Available No t Available amoxicill in 500 mg capsule TAKE 1 CAPSULE BY MOUTH THREE TIMES DAILY FOR 10 DAYS active Not Available Not Available No t Available terconazo le 0.4 % vaginal cream active Not Available Not Available Not Available Qvar 80 mcg/actua tion Metered Aerosol oral inhaler active Not Available Not Available Not Available azelastin e 0.05 % eye drops INSTILL ONE DROP IN OU BID X 14 DAYS 07/19 completed Not Available Not Available Not Available prednison e 10 mg tablet TAKE 6 TABS BY MOUTH ONCE DAILY FOR 2 DAYS THEN 4 TABS ONCE DAILY FOR 2 DAYS THEN 3 TABS ONCE DAILY FOR 2 DAYS THEN 2 TABS ONCE DAILY FOR 2 12/04 completed Not Available Not Available Not Available nabumeton e 750 mg tablet TK 1 T PO BID active Not Available Not Available No t Available clindamyc in HCl 300 mg capsule Take 1 capsule every 12 hours by oral route for 7 days. active Not Available Not Available No t Available albuterol sulfate 2.5 mg/3 mL (0.083 %) solution for nebulizat ion Inhale 3 mL 3 times a day by nebuliza tion route. active Not Available Not Available No t Available citalopra m 40 mg tablet TK ONE T PO QD active Not Available Not Available No t Available triamcino lone acetonide 0.5 % topical cream APPLY TOPICALL Y TO THE AFFECTED AREA ON ARMS AND LEGS TWICE DAILY X 7 DAYS 12/04 completed Not Available Not Available Not Available cetirizin e 10 mg tablet TAKE 1 TABLET BY MOUTH EVERY DAY 12/04 completed Not Available Not Available Not Available azithromy osorio 250 mg tablet TAKE 2 TABLETS (500 MG) BY ORAL ROUTE ONCE DAILY FOR 1 DAY THEN 1 TABLET (250 MG) BY ORAL ROUTE ONCE DAILY FOR 4 DAYS 01/16 completed Not Available Not Available Not Available ibuprofen 800 mg tablet TAKE 1 TABLET BY MOUTH EVERY 6 HOURS NEEDED FOR PAIN 12/04 completed Not Available Not Available Not Available fluconazo le 150 mg tablet TAKE 1 TABLET BY MOUTH 1 TIME FOR 1 DOSE active Not Available Not Available No t Available citalopra m 10 mg tablet TAKE 1 TABLET BY MOUTH EVERY DAY 03/28 completed Not Available Not Available Not Available hydrocodo ne 5 mg-acetam inophen 325 mg tablet TAKE 1 TABLET BY MOUTH EVERY 8 HOURS NEEDED FOR MODERATE TO SEVERE PAIN 03/11 completed Not Available Not Available Not Available ondansetr on HCl 8 mg tablet take 1 tab 30 min prior to flagyl and can repeat x 1 in 8 hours. active Not Available Not Available No t Available meloxicam 15 mg tablet TK ONE T PO QD 04/06 completed back pain Not Available Not Available Not Available ondansetr on HCl 4 mg tablet 04/29 completed Not Available Not Available Not Available prednison e 20 mg tablet 12/04 completed Not Available Not Available Not Available clonazepa m 0.5 mg tablet TK 1 T PO BID FOR 10 DAYS active Not Available Not Available No t Available dexametha sone 6 mg tablet TAKE 1 TABLET BY MOUTH DAILY FOR 5 DAYS 04/06 completed Not Available Not Available Not Available permethri n 5 % topical cream APPLY (THOROUG HLY MASSAGE INTO SKIN FROM HEAD TO SOLES OF FEET) BY TOPICAL ROUTE ONCE LEAVE ON FOR 8-14 HR, THEN REMOVE BY THOROUGH WASHING active Not Available Not Available No t Available metronida zole 500 mg tablet TK 1 T PO BID FOR 7 DAYS 01/16 completed Not Available Not Available Not Available acetamino phen 300 mg-codein e 30 mg tablet TK 1 T PO BID PRN. MAX 30 TS PER MONTH active Back pain and left foot pain from previous trauma Not Available Not Available Not Available ciproflox acin 500 mg tablet TK 1 T PO BID FOR 10 DAYS active PT HASN'T TAKEN IT YET Not Available Not Available Not Available sulfameth oxazole 800 mg-trimet hoprim 160 mg tablet TK 1 T PO BID FOR 10 DAYS active Not Available Not Available No t Available tramadol 50 mg tablet TAKE 1 TABLET BY MOUTH EVERY 4 HOURS NEEDED FOR MODERATE OR MORE SEVERE PAIN 12/04 completed Not Available Not Available Not Available triamcino lone acetonide 0.1 % topical cream APPLY THIN LAYER TOPICALL Y TO THE AFFECTED AREA TWICE DAILY active Not Available Not Available No t Available amoxicill in 500 mg tablet Take 1 tablet twice a day by oral route for 7 days. active Not Available Not Available No t Available acyclovir 800 mg tablet Take 1 tablet 5 times a day by oral route as needed for 10 days. active Not Available Not Available No t Available levothyro xine 25 mcg tablet TK ONE T PO QD active Not Available Not Available No t Available Kenalog 40 mg/mL suspensio n for injection Take 1.5 mL as needed by injectio n route as needed for 1 day. 2023 active Not Available Not Available Not Avai lable meloxicam 7.5 mg tablet TAKE 1 TABLET BY MOUTH EVERY DAY 04/29 completed Not Available Not Available Not Available citalopra m 20 mg tablet Take 1 tablet every day by oral route. active Not Available Not Available No t Available famotidin e 20 mg tablet TAKE 1 TABLET BY MOUTH TWICE DAILY NEEDED FOR HEARTBUR N active Not Available Not Available No t Available cephalexi n 500 mg capsule TK 1 C PO QID FOR 10 DAYS active Not Available Not Available No t Available nystatin 100,000 unit/gram topical cream MATEUS AA ON BUTTOCKS BID FOR 7 TO 10 DAYS active Not Available Not Available No t Available ranitidin e 150 mg tablet Take 1 tablet twice a day by oral route. 12/04 completed Not Available Not Available Not Available bupropion HCl 75 mg tablet TAKE 1 TABLET BY MOUTH DAILY FOR 1 WEEK THEN TAKE 1 TABLET BY MOUTH TWICE DAILY 12/04 completed Not Available Not Available Not Available gabapenti n 300 mg capsule TAKE 1 CAPSULE BY MOUTH TWICE DAILY 04/06 completed Not Available Not Available Not Available monteluka st 10 mg tablet TK ONE T PO QD 04/06 completed Not Available Not Available Not Available hydroxyzi ne HCl 25 mg tablet TAKE 1 TABLET BY MOUTH THREE TIMES DAILY NEEDED active Not Available Not Available No t Available ergocalci ferol (vitamin D2) 1,250 mcg (50,000 unit) capsule TK 1 C PO Q WK 07/19 completed Not Available Not Available Not Available lorazepam 1 mg tablet 01/16 completed PANIC ATTACKS- - ER PRESCIBE D Not Available Not Available Not Available methylpre dnisolone 4 mg tablets in a dose pack FOLLOW PACKAGE DIRECTIO NS 12/04 completed Not Available Not Available Not Available albuterol sulfate HFA 90 mcg/actua tion aerosol inhaler INHALE 2 PUFFS BY MOUTH EVERY 4 TO 6 HOURS NEEDED FOR SHORTNES S OF BREATH OR WHEEZING active Not Available Not Available No t Available hydroxyzi ne HCl 10 mg tablet Take 1 tablet twice a day by oral route for 30 days. active MARCEL STORM ESPT STATES STOPPED THIS DOSE WHEN ER GAVE HIGHER DOSE Not Available Not Available Not Available ondansetr on 4 mg disintegr ating tablet TAKE 1 TABLET BY MOUTH EVERY 8 HOURS NEEDED FOR NAUSEA active Not Available Not Available No t Available fluticaso ne propionat e 50 mcg/actua tion nasal spray,[employer] Inhale 2 sprays every day by intranas al route for 30 days. active Not Available Not Available No t Available sertralin e 50 mg tablet TK 1 T PO D active Not Available Not Available No t Available doxycycli ne hyclate 100 mg tablet Take 1 tablet twice a day by oral route. 12/04 completed Not Available Not Available Not Available loratadin e 10 mg tablet TK 1 T PO D active Not Available Not Available No t Available naproxen 500 mg tablet Take 1 tablet twice a day by oral route as needed. active headache Not Available Not Available No t Available amoxicill in 875 mg-potass ium clavulana te 125 mg tablet TAKE 1 TABLET BY MOUTH TWICE DAILY FOR 10 DAYS 01/20 completed Not Available Not Available Not Available amoxicill in 500 mg-potass ium clavulana te 125 mg tablet TK 1 T PO Q 12 H FOR 7 DAYS active Not Available Not Available No t Available hydroxyzi ne pamoate 25 mg capsule TK ONE C PO BID PRN active Not Available Not Available No t Available cyclobenz aprine 5 mg tablet TAKE 1 TABLET BY MOUTH THREE TIMES DAILY NEEDED FOR MUSCLE SPASMS 12/04 completed Not Available Not Available Not Available bupropion HCl XL 150 mg 24 hr tablet, extended release TAKE 1 TABLET BY MOUTH EVERY DAY 03/11 completed Not Available Not Available Not Available nitrofura ntoin monohydra te/macroc rystals 100 mg capsule TAKE 1 CAPSULE BY MOUTH TWICE DAILY FOR 7 DAYS FOR UTI active Not Available Not Available No t Available quetiapin e 50 mg tablet TAKE 1 TABLET BY MOUTH EVERY DAY DIRECTED 2023 active Not Available Not Available Not Avai lable Symbicort 160 mcg-4.5 mcg/actua tion HFA aerosol inhaler inhale 2 puffs bid 2023 active Not Available Not Available Not Avai lable Symbicort 80 mcg-4.5 mcg/actua tion HFA aerosol inhaler INHALE 2 PUFFS BY MOUTH TWICE DAILY. RINSE MOUTH WITH WATER AFTER USE. DO NOT SWALLOW 12/04 completed Not Available Not Available Not Available Spiriva Respimat 1.25 mcg/actua tion solution for inhalatio n INHALE 2 PUFFS BY MOUTH DAILY 12/04 completed Not Available Not Available Not Available Breztri Aerospher e 160 mcg-9mcg- 4.8mcg/ac tuation HFA aerosol inhaler Inhale by inhalati on route for 30 days. active Not Available Not Available No t Available Aquaphor Itch Relief 1 % topical ointment APPLY A THIN LAYER TO THE AFFECTED AREA(S) BY TOPICAL ROUTE 2 TIMES PER DAY 2023 active Not Available Not Available Not Avai lable Airsupra 90 mcg-80 mcg/actua tion HFA aerosol inhaler Inhale 2 inhalati ons as needed by inhalati on route as needed for 30 days. 2023 active Not Available Not Available Not Avai lable Vitals Date Recorded Body weight Body mass index (BMI) Body height Body temperature Respiratory rate Heart rate Oxygen saturation Oxygen saturation in Arterial blood by Pulse oximetry Systolic And Diastolic Provider Name and Address Organization Details Last Updated DateTime 72358.1 4 g 28.4 kg/m2 175.26 cm 96.9 [degF] 20 /min 74 /min 98 % 98 % 150/98 mm[Hg] Ruth To RN [facility] Find That File [facility] 4 11:32:01 Date Recorded Body height Body mass index (BMI) Body weight Body temperature Heart rate Respiratory rate Oxygen saturation Oxygen saturation in Arterial blood by Pulse oximetry Systolic And Diastolic Provider Name and Address Organization Details Last Updated DateTime 4 175.26 cm 29 kg/m2 57555.1 5 g 97.5 [degF] 80 /min 24 /min 97 % 97 % 158/88 mm[Hg] Ruth To RN [facility] Find That File [facility] 4 14:58:14 Date Recorded Body height Provider Name an d Address Organization Details Last Updated DateTime 05/23/2022 175.26 cm Not Available [facility] 3 18:05:44 Date Recorded Body mass index (BMI) Body height Oxygen saturation Oxygen saturation in Arterial blood by Pulse oximetry Heart rate Body temperature Body weight Systolic And Diastolic Provider Name and Address Organization Details Last Updated DateTime 1 34.4 kg/m2 175.26 cm 96 % 96 % 88 /min 97.1 [degF] 492216. 02 g 146/100 mm[Hg] Not Available [facility] 3 18:05:43 Date Recorded Body mass index (BMI) Body height Oxygen saturation Oxygen saturation in Arterial blood by Pulse oximetry Heart rate Respiratory rate Body temperature Body weight Systolic And Diastolic Provider Name and Address Organization Details Last Updated DateTime 2 29.1 kg/m2 175.26 cm 99 % 99 % 88 /min 24 /min 97.7 [degF] 41287.7 g 162/94 mm[Hg] Not Available [facility] 3 18:05:43 Social History Question Answer Notes LastModified by Organizat ion Details LastModified Time Tobacco Smoking Status Current Every Day Smoker Not Available [facility] 01/23/2023 18:04:58 Do You Have An Advance Directive? No Information n ot available 12/04/2023 Is Blood Transfusion Acceptable In An Emergency? Yes Information not available 12/04/2023 What Is Your Level Of Caffeine Consumption? Moderate Soda Information not available 03/11/2024 What Is Your Code Status? Full Code Information not available 12/04/2023 In The 14 Days Before Symptom Onset, Have You Had Close Contact With A Laboratory-confirm ed COVID-19 While That Case Was Ill? No Information n ot available 12/04/2023 In The 14 Days Before Symptom Onset, Have You Had Close Contact With A Person Who Is Under Investigation For COVID-19 While That Person Was Ill? No Information not available 12/04/2023 What Type Of Diet Are You Following? REGULAR [id number] Information not available 01/23/2023 What Is The Highest Grade Or Level Of School You Have Completed Or The Highest Degree You Have Received? AH64763-4 [id number].[id number] Information not available 01/23/2023 Have There Been Any Changes To Your Family Or Social Situation? Yes Bills Information no t available 03/11/2024 What Is The Fluoride Status Of Your Home? Unknown [id number] Information not available 01/23/2023 Do You Use Insect Repellent Routinely? No MIGRATION.[id number] 8386 Information not available 01/23/2023 Where Do You Live? [place] MIGRATION .[id number] Information not available 01/23/2023 Do You Have A Medical Power Of Comic Artist? No Information not available 12/04/2023 How Many Children Do You Have? 1 Information not available 03/11/2024 Do You Have Any Pets? Yes MIGRATION.[id number] 8705 Information not available 01/23/2023 What Is Your Relationship Status? Domestic Partner MIGRATION.[id number] 1869 Information not available 01/23/2023 Do You Use Your Seat Belt Or Car Seat Routinely? Yes MIGRATION.240312 4472 Information not available 01/23/2023 Do You Have Smoke And Carbon Monoxide Detectors In Your Home? Yes MIGRATION.[id number] 0662 Information not available 01/23/2023 Are You Passively Exposed To Smoke? Yes MIGRATION.632176 6384 Information not available 01/23/2023 Are There Any Smokers In Your House? Yes MIGRATION.364225 5443 Information not available 01/23/2023 How Much Tobacco Do You Smoke? 1 PPW MIGRATION.348121 1610 Information not available 01/23/2023 Do You Participate In Social Media? Yes Information not available 03/11/2024 Do You Use Sunscreen Routinely? No MIGRATION.[id number] 5167 Information not available 01/23/2023 Have You Recently Traveled Abroad? No Information not available 12/04/2023 Are You Currently In School? No MIGRATION.[id number] 9530 Information not available 01/23/2023 Do You Have Any Dietary Restrictions? No MIGRATION.981338 1356 Information not available 01/23/2023 Sex: Unknown Functional Status Question Answer Note LastModified by Organizat ion Details LastModified Time Do you use any illicit or recreational drugs? No Information not available 03/11/2024 What is your level of alcohol consumption? 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 Moderate MIGRATION.330190 0472 Information not available 01/23/2023 Mental Status Question Answer Note LastModified by Organizat ion Details LastModified Time Do you feel stressed (tense, restless, nervous, or anxious, or unable to sleep at night)? [id number] MIGRATION.[id number] 6 Information not available 01/23/2023 Family History Relationship Description Onset Age of this Age Resolved Age Notes LastModified by Organization Details LastModified Time Mother Panic attack MIGRATION.0 30 [id number] Not available 01/23/2023 18:05:06 Father Panic attack MIGRATION.0 30 [id number] Not available 01/23/2023 18:05:06 Medical History Condition Response DEPRESSION (INCLUDING POST ) Y ANXIETY DISORDER Y Gynecological History Statement/Question Response How many live births 1 Flow Moderate Date of LMP 02/17/2024 Frequency of Cycle (Q days) Menses Monthly Y Duration of Flow (days) 7 Date of Last Pap Smear Age at Menarche 12 Most Recent Mammogram Obstetrics History GPAL:G 0 P 0 0 0 0 Immunizations Vaccine Type Date Status Note Provider Nam e and Address Organization Details Recorded Time Tdap 6 completed Not Available [facility] 01/23/2023 18:07:18 Influenza, split virus, trivalent, preservative 5 completed Not Available [facility] 01/23/2023 18:07:18 Influenza, split virus, quadrivalent, preservative 6 completed Not Available [facility] 01/23/2023 18:07:18 Past Encounters Encounter ID Performer Location Encounter Start Date Encounter Closed Date Diagnosis/Indication Diagnosis SNOMED-CT Code Diagnosis ICD10 Code Diagnosis Note [id number] Camron Pettit MD [address] [address] 04/06/2021 00:00:00 04/06/2021 17:37:54 [id number] Camron Pettit MD [address] [address] 1 10/16/2021 00:00:00 10/16/2021 14:41:18 [id number] Camron Pettit MD [address] [address] 05/23/2022 00:00:00 05/23/2022 10:04:36 [id number] Camron Pettit MD [address] [address] 1 11/14/2022 00:00:00 11/14/2022 14:38:20 [id number] Ruth Delatorre NP [address] [address] 12/04/2023 11:04:37 12/04/2023 12:14:56 Hypothyroidism 41773292 E03.9 Not on meds for > 1 year. Hyperlipidemia 29607912 E78.5 Not on meds. Lipid panel. Herpes simplex 55160439 B00.9 No flare. Occasional valtrex or acyclovir use. Bipolar disorder 5309832 4 F31.9 Quetiapine 25 mg po nightly. Pt to follow up with Psych or alternate provider as this provider is leaving. Smoker 71340111 F17.200 Cessation encouraged and recommende d. Avoid MJ as well. Asthma 704006443 J45.90 9 symbicort routine. rinse mouth after use. [id number] Camron Pettit MD [facility] [address] [place] [address] 03/11/2024 14:42:01 03/11/2024 17:02:13 Atopic dermatitis 80009562 L20.9 Asthma 659785636 J45.90 9 Blood leuk ocyte number above reference range 086579261 D72.829 Increased thirst 1088599 03 R63.1 Bipolar disorder 9241503 4 F31.9 Crusted scabies 04960925 5 B86 Health Concerns Section Related Observation LastModified by Organization Detai ls LastModified Time None Recorded Concern Status LastModified by Organization Details LastModified Time None Recorded Advance Directives Directive N: Payers Insurance Date Sequence Insurance Name Policy Number Policy Avila Covered Member ID Avila Member ID Guarantor Name 04/21/2024 1 [facility] - DOS ON OR AFTER 21 (MEDICAID REPLACEMENT - HMO) Lilia Diazuitt [id number] Lilia Cardoso Jose Notes Date Note Type Note Provider Name and Address Organization Details Recorded Time 12/04/2023 text/html Here for check u p on meds. Has 5 yo son Ramin and has autism. Has new boyfriend after 6 years. Boyfriend, Adam is better support for her than previous father of her child. Thyroid- not on meds. Hasn't been on for a while. Forgot she had thyroid disorder.Lipid- not on meds. Eats what she can, but not always able to be picky.Herpes- no issues.Asthma- Still breathing ok.Cigs- 1 ppd.Has stress often with living situation. Has been smoking MJ and cigarettes. Has temper, angry and will throw things. Has no SI/HI. No thoughts of harm to self and others. Ruth Delatorre NP [address] [facility], [facility] [address], [place], [address], [facility] [employer] 12/04/2023 12:08:13 03/11/2024 text/html Lilia Garcia is a 38 year old female patient here to establish care. Her past medical history is significant for bipolar disorder and mixed anxiety and depressive disorder. She is currently taking quetiapine 25 mg PO daily. Her PHq2/9 score today is _. She has seasonal allergic rhinitis and asthma. She takes symbicort 160 mcg 2 puff daily. She has albuterol on hand as needed. She rarely takes the albuterol but does take her symbicort usually more than prescribed. She has had an abnormal CBC in 11/2021. She has not had a repeat CBC since. She has concerns today with a rash. This rash is on bilateral arms, chest, and abdomen. There are multiple red pinpoint lesions. There is no tunneling connecting the lesions. This rash appears every spring. She states it is itchy and most of the papules have been scratched off. She has hydroxyzine 25 mg on hand and states that it does help. She has concerns with potential diabetes. She states that she gets shaky and light headed between meals, cannot control her weight, and is always thirsty and tired. She has IBS-D she is managing with lifestyle changes. Flu shot: OVID vaccines: declinesTdap: 03/2016WWE: overdue, recommended ADDI Webb [address] [facility], [facility] [address], [place], [address], [facility] 03/11/2024 16:49:02 OBGyn Episode No OBEpisode recorded.
--- OUTSIDE RECORDS SUMMARY | 2025-06-02 09:29 | XMS_ITS | Clinical Summary ---
Author Organization [facility] Address [address] [place] [address] Phone Care Team Providers Care Shipfitter Helper Name Role Phone Sofya Corey Mame DPM Unavailable [phone] Marisela Cerna APRN Primary Care Provider [phone] Allergies Active Allergy Reactions Criticality Noted Date [...] 2 times daily. 10.2 g 4 Active doxycycline hyclate (VIBRAMYCIN) 100 MG Capsule Take 1 Capsule by mouth 2 times daily for 10 days. 20 Capsule 5 05/29/20 25 Active Problems Problem Noted Date Diagnosed Date [...] Encounters Date Type Department Care Team Description 05/19/2025 4:43 PM CDT - 05/19/2025 5:15 PM CDT Emergency [facility] Emergency [address] [place] [address] Maggi Mendoza, USABILITY STRATEGIST, LITHOPLATE MAKER Tick bite of back, initial encounter Discharge Disposition: Discharged to home or Selfcare 05/19/2025 Travel from Last 3 Months Family History [...] Sign Reading Time Taken Comments Blood Pressure 156/109 05/19/2025 4:41 PM CDT Pulse 69 05/19/2025 4:41 PM CDT Temperature 37.2 C (99 F) 05/19/2025 4:41 PM CDT Respiratory Rate 16 05/19/2025 4:41 PM CDT Oxygen Saturation 100% 05/19/2025 4:41 PM CDT Inhaled Oxygen Concentration - - Weight 90.7 kg (200 lb) 05/19/2025 4:41 PM CDT Height 175.3 cm (5' 9) 05/19/2025 4:41 PM CDT Body Mass Index 29.53 05/19/2025 4:41 PM CDT Plan of Treatment Health Maintenance Due Date Last Done Comments Hepatitis C Virus (HCV) Screening 1985 Mammogram 1985 Human Papillomavirus (HPV) Immunization (1 - 3-dose series) 2000 Hepatitis B Immunization (1 of 3 - 19+ 3-dose series) 2004 Pneumococcal Immunization Combined (1 of 2 - PCV) 2004 Pap Smear 2006 Cervical Cancer Screening (CCS) 2015 HPV/Cotest 2015 SARS-COV-2 Immunization ( - season) 2024 Discussion re Starting/Frequency of Mammograms 2025 Influenza Immunization (#1) 07/26/202511/26, 09/10/2016, 08/25/2015, Additional history exists Respiratory Syncytial Virus (RSV) Immunization (Adult) (1 - 1-dose 75+ series) 2060 DTaP/Tdap/Td Immunization Discontinued 12/21/2018, 11/2015 TdaP Immunization Completed 12/21/2018, 03/25/2016 Meningococcal Immunization (ACWY) Aged Out No longer eligible based on patient's age to complete this topic Rotavirus Immunization Aged Out No lo nger eligible based on patient's age to complete this topic Insurance MEDICAID [employer] Advance Directives [...] measures to stabilize the patient. Care Teams Shipfitter Helper Relationship Specialty Start Date End Date Marisela Cerna APRN [address] [place] [id number] PCP - General Advanced Practice Nurse 12/13/24 Corey Cowart DPM Consulting Physician Podiatry 05/07/16
--- OUTSIDE RECORDS SUMMARY | 2025-06-02 09:29 | XMS_ITS | Clinical Summary ---
Author Organization [facility] Address [address] [place] [address] Care Team Providers Care Foil Operator Name Role Phone Nehemiah Marisela KATERINE Primary Care Provider [phone] Allergies Active Allergy Reactions Criticality Noted Date [...] (03/30/2022): Added automatically from request for surgery [id number] Asthma 04/10/2014 Overview (02/28/2017): ASTHMA NOS Hypertension [...] on file Legal Sex Female 1:33 PM [employer] Gender Identity Not on file Sexual Orientation Not on file Occupation Industry Job Start Date Job End Date [employer] Not on file Not on file Not [...] Health Maintenance Due Date Last Done Comments Breast Cancer Screening-Mammogram 1985 Depression Screening 1985 Hepatitis C Screening 1985 Varicella Vaccines (1 of 2 - 13+ 2-dose series) 1998 Hepatitis B Screening 2003 Pneumococcal vaccine <65 (1 of 2 - PCV) 2004 Cervical Cancer Screening 08/21/2022 08/21/2021 Regular Well Visit/Exam 18-64 08/21/2022 08/21/2021 Influenza Vaccine (Season Ended) 2025 12/21/2018, 09/10/2016, 08/25/2015, Additional history exists DTaP/Tdap/Td Vaccine [...] 10:50 AM CDT [facility] Department of Pathology [address] [place] [address] Final Report with Addendum Note to Patients: [...] the details. Patient Name: LILIA GARCIA Address: [address] [place] [address] Gender: F : 1985 (Age: 36) Service: Laboratory Location: Lab [facility] #: [id number] Patient Type: Ref Lab Taken: 08/21/2021 Received: 08/21/2021 Accessioned:: 08/22/2021 Reported: 08/24/2021 Physician(s): Wade Bryant D.O. Diagnosis: Source of Specimen: Imaged Thinprep Pap Test plus HPV - Asphalt Blender Cytologic Material Specimen Adequacy: - Satisfactory for [...] Imaged Thinprep Pap Test plus HPV - Asphalt Blender Cytologic Material Clinical History: Last Menstrual Period: [...] by the Surgical Pathology Department at [facility] as part of an ongoing research associate quality control qc program and in compliance with federally mandated [...] characteristics determined by the Surgical Pathology Department [facility]. It has not been cleared or approved by the U. S. Food and Drug Administration. us Hawa Reed DO LAB CYTOLOGY ORDERABLES Final Result from Last 3 Months or Most Recently Relevant to Health Maintenance Insurance [id number] [place] [address] Member Subscriber Plan / Payer (Ef fective 2018-Present) Name:Lilia Garcia Relation to Subscriber:Self Name:Lilia Garcia Payer ID:[id number] (NAIC) Group ID:Not on file Type:MEDICAID RISK OTHER [address]: [address] [place], [place] [phone] [place] [address] [facility] Advance Directives For more information, please contact: [phone] * Full Code (Latest Code Status on File) Date Activated Date Inactivated Comments 03/30/2022 4:07 AM 03/30/2022 4:18 PM Care Teams Foil Operator Relationship Specialty Start Date End Date Marisela Cerna NP [facility] [address] PCP - General Nurse Practitioner 04/30/24
--- OUTSIDE RECORDS SUMMARY | 2025-06-02 09:29 | XMS_ITS | Clinical Summary ---
Author Organization [facility] Address [address] [place] [address] Care Team Providers Care Vocational Coordinator Name Role Phone Unavailable Primary Care Provider Unavailabl e Source Comments [facility],non-owned Affiliates and Associated Physician Practices is amultiple site organization consisting of ambulatory clinics and hospital sitesin [place], [place] and [place]. This disclosure is being madepursuant to the Care Everywhere program and may not contain all information available regarding this patient. Last updated 18.[facility] [employer] Allergies Active Allergy Reactions Criticality Noted Date Comments Codeine Nausea and/or Vomiting 11/04/2018 Hydromorphone Psychiatric Medium 04/04/2016 Guaifenesin Dizziness 12/17/2015 felt like a seizure Medications * Be aware that medications may not be up to date on this document. Alwaysverify current medications with the patient. albuterol HFA (PROVENTIL;PHILIPPE TOLIN;PROAIR) 108 (90 BASE) MCG/ACT inhaler 8 Active Frifpdpz-Bvo-Z e-FA ( VITAMINS PO) Take 1 tablet by mouth Active pseudoephedrin e (SUDAFED) 30 MG tablet Take 30 mg by mouth every 4 hours as needed for Nasal Congestion Active valACYclovir (VALTREX) 500 MG tablet Take 500 mg by mouth 2 times daily Active NIFEdipine CR 24hr (ADALAT CC) 60 MG tablet Take 1 tablet by mouth 2 times daily,before breakfast and supper Take on an empty stomach. 60 tablet 1 9 Active labetalol (NORMODYNE; TRANDATE) 200 MG tablet Take 2 tablets by mouth every 12 hours 120 tablet 1 9 Active ibuprofen (MOTRIN) 600 MG tablet Take 1 tablet by mouth every 6 hours as needed for Pain 40 tablet 9 Active benzocaine-men thol (DERMOPLAST) 20-0.5 % spray Apply to affected area 3 times daily as needed (perianal pain) 78 g 9 Active acetaminophen (TYLENOL) 325 MG tablet Take 2 tablets by mouth every 6 hours as needed Maximum allowable Acetaminophen amount = 4 Grams (4000 mg) / 24 hours. 40 tablet 9 Active hemorrhoidal (PREPARATION H) ointment Insert into the rectum 3 times daily as needed for Hemorrhoids 43 g 9 Active Vit-Fe Fumarate-FA ( LOW IRON) tablet Take 1 tablet by mouth once daily 30 tablet 9 Active docusate sodium (COLACE) 100 MG capsule Take 1 capsule by mouth once daily 60 capsule 9 Active Active Problems Patient Care Coordination No te Formatting of this note migh t be different from the original. Nopp/mfcc 09/2018 Problem Noted Date Diagnosed Date Elevated blood pressure affecting , ant epartum 12/16/2018 Depression screen 11/24/2018 Overview (11/24/2018): 11/24/2018 Lilia Garcia was screened for depression using the Pride Depression Scale (EPDS) at her [facility] initial evaluation on 11/24/2018. Her initial score [...] from the original note were not included. SNF PATIENT--PLEASE CALL [phone] IF TRIAGED OR ADMITTED Care Provider: Dr Barnett [facility] consultants involved: RN- Sherri/Keyur; YOUSUF- Alfredo; Urology- Maximino Diagnosis: Right UTD A 2-3 follow up: per 11.24 Urology consult OK to deliver at location of mother's choice, discharge on antibiotic prophylaxis pending further workup, Formal RBUS at >48hrs of life but <1mo, Follow-up in Pediatric Urology at [facility] when US completed. Will decide on need for VCUG at time of initial consultation in clinic [employer] Bleacher: Dr Denny Mariano Planned surveillance: Weekly BPP/Dopplers & NST at [facility] Delivery location, mode, and GA: [facility], TBD- G1 Autopsy indicated: Genetics note: Regional Clinical Director Concerns: 11/24/18- Patient with mental health history, no medications. Patient and FOB both with learning disabilities and patient reports problems with memory. Limited income and limited family support. Care plan based on evaluation and is subject to change based on assessment. See Images or Cardiac under Chart Review for US/ ECHO/ MRI reports. Immunizations Immunization Administration Dates Next Due INFLUENZA VACCINE, QUADR. [...] 0.6 oz pur e alcohol) socially before Comments No Sex and Gender Information Value Date Recorded Sex Assigned at Not on file Legal Sex Female 12:05 PM [employer]OMEMAKING [employer] CONSULTANT Gender Identity Not on file Sexual Orientation Not on file Last Filed Vital Signs Vital Sign Reading Time Taken Comments Blood Pressure 136/64 12/22/2018 3:15 PM HOMEMAKING REHABILITATION CONSULTANT Pulse 88 12/22/2018 3:15 PM HOMEMAKING REHABILITATION CONSULTANT Temperature 36.7 C (98 F) 12/22/2018 3:15 PM HOMEMAKING REHABILITATION CONSULTANT Respiratory Rate 16 12/22/2018 3:15 PM HOMEMAKING REHABILITATION CONSULTANT Oxygen Saturation 98% 12/22/2018 3:15 PM HOMEMAKING REHABILITATION CONSULTANT Inhaled Oxygen Concentration - - Weight 98.9 kg (218 lb) 12/17/2018 12:13 AM HOMEMAKING REHABILITATION CONSULTANT Height 175.3 cm (5' 9) 12/17/2018 12:13 AM HOMEMAKING REHABILITATION CONSULTANT Body Mass Index 32.19 12/17/2018 12:13 AM HOMEMAKING REHABILITATION CONSULTANT Plan of Treatment Health Maintenance Due Date Last Done Comments LIPID TESTING 1985 MAMMOGRAM 1985 HIV SCREENING 2000 HEPATITIS C SCREENING 03/22/2003 HEPATITIS B VACCINE (1 of 3 - 19+ 3-dose series) 2004 PAP with HPV 2015 COVID-19 VACCINE (2023-2 5 season) 2024 DEPRESSION SCREENING 11/25/2024 INFLUENZA [...] patient's age to complete this topic Insurance [place] [id number] [facility] Advance Directives * Full Code (Latest Code Status on File) Date Activated Date Inactivated Comments 12/16/2018 11:48 PM 12/22/2018 7:11 PM
== END 2025-06-02 09:20 | disposition home or self-care (01) ==
PROVIDERS: PCP Nurse Practitioner Adult Health; Visit Provider Nurse Practitioner Adult Health
DX: R22.1 Localized swelling, mass and lump, neck (principal); K30 Functional dyspepsia; K76.0 Fatty (change of) liver, not elsewhere classified
CPT/HCPCS: 76536; 76705